=== PATIENT | male | born 1940 | race Caucasian/White ===

== ENCOUNTER 2016-12-01 22:17 | Inpatient (IN) | payer OTHER ==
--- NOTE | 2016-12-01 22:55 | PDOC ---
History of Present Illness - General History Source: Patient, Care Provider, Old Records Exam Limitations: No Limitations - History of Present Illness Initial Comments: 12/02/16 00:54 The patient is a 76 year old male with reportedly past medical history of arthritis, presents with rash on right anterior wolf (erythema). He started noticing it about a week and a half ago and has progressively worsened. 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 Noted an ulceration. Denies fevers, chills. And then yesterday, the climatology professor noted diffuse itchy rash on the upper extremities and abdomen and within the interweb digits. <Gabino Redmond - Last Filed: 12/02/16 00:54> - General History Source: Patient, Care Provider, Old Records Exam Limitations: No Limitations <Flavio Walker - Last Filed: 12/02/16 12:19> - General Chief Complaint: Wound Infection Stated Complaint: CELLUITIS Time Seen by Provider: 12/01/16 22:36 Past History <Gabino Redmond - Last Filed: 12/02/16 00:54> - Past Medical History Anemia: No Asthma: No Cancer: No Cardiac Disorders: No CVA: No COPD: No CHF: No Dementia: No Diabetes: No GI Disorders: No Disorders: No HTN: Yes Hypercholesterolemia: No Liver Disease: No Seizures: No Thyroid Disease: No - Surgical History Abdominal Surgery: No Appendectomy: No Cardiac Surgery: No Cholecystectomy: No Lung Surgery: No Neurologic Surgery: No Orthopedic Surgery: No - Immunization History Immunization Up to Date: No - Psycho/Social/Smoking Cessation Hx Anxiety: No Suicidal Ideation: No Smoking Status: No Smoking History: Never smoked Have you smoked in the past 12 months: No Number of Cigarettes Smoked Daily: 0 If you are a former smoker, when did you quit?: 30 yrs ago Hx Alcohol Use: No Drug/Substance Use Hx: No Substance Use Type: None Hx Substance Use Treatment: No <Flavio Walker - Last Filed: 12/02/16 12:19> - Past Medical History Allergies/Adverse Reactions: Allergies Allergy/AdvReac Type Severity Reaction Status Date / Time No Known Allergies Allergy Verified 12/01/16 22:26 Home Medications: Ambulatory Orders NK [No Known Home Medication] 12/02/16 Review of Systems - Review of Systems Able to Perform ROS?: Yes Comments:: 12/02/16 00:55 GENERAL/CONSTITUTIONAL: No fever or chills. No weakness. HEAD, EYES, EARS, NOSE AND THROAT: No change in vision. No ear pain or discharge. No sore throat. CARDIOVASCULAR: No chest pain or shortness of breath. RESPIRATORY: No cough, wheezing, or hemoptysis. GASTROINTESTINAL: No nausea, vomiting, diarrhea or constipation. GENITOURINARY: No dysuria, frequency, or change in urination. MUSCULOSKELETAL: No joint or muscle swelling or pain. No neck or back pain. SKIN: (+) Rash bilaterally on upper and lower extremities. NEUROLOGIC: No headache, vertigo, loss of consciousness, or change in strength/ sensation. ENDOCRINE: No increased thirst. No abnormal weight change. HEMATOLOGIC/LYMPHATIC: No anemia, easy bleeding, or history of blood clots. ALLERGIC/IMMUNOLOGIC: No hives or skin allergy. <Gabino Redmond - Last Filed: 12/02/16 00:54> *Physical Exam - Vital Signs Last Vital Signs Temp Pulse Resp BP Pulse Ox 97.4 F L 97 H 18 152/81 95 12/01/16 22:26 12/01/16 22:26 12/01/16 22:26 12/01/16 22:26 12/01/16 22:26 - Physical Exam Comments: 12/02/16 00:55 GENERAL: Awake, alert, and fully oriented, in no acute distress HEAD: No signs of trauma EYES: PERRLA, EOMI, sclera anicteric, conjunctiva clear ENT: Auricles normal inspection, hearing grossly normal, nares patent, oropharynx clear without exudates. Moist mucosa NECK: Normal ROM, supple, no lymphadenopathy, JVD, or masses LUNGS: Breath sounds equal, clear to auscultation bilaterally. No wheezes, and no crackles HEART: Regular rate and rhythm, normal S1 and S2, no murmurs, rubs or gallops ABDOMEN: Soft, nontender, normoactive bowel sounds. No guarding, no rebound. No masses EXTREMITIES: Normal range of motion, no edema. No clubbing or cyanosis. No cords, erythema, or tenderness NEUROLOGICAL: Cranial nerves II through XII grossly intact. Normal speech SKIN: (+) 15 x 8 cm wolf erythema with approximately 2x 2 cm skin ulceration in mid tibia tenderness to palpation. Upper extremities: Multiple scratch boateng, multiple raised erythematous lesions, scabies(?). <Gabino Redmond - Last Filed: 12/02/16 00:54> - Vital Signs Last Vital Signs Temp Pulse Resp BP Pulse Ox 97.4 F L 97 H 18 152/81 95 12/01/16 22:26 12/01/16 22:26 12/01/16 22:26 12/01/16 22:26 12/01/16 22:26 - Physical Exam Comments: 12/02/16 12:19 ADDENDUM TO SCRIBE NOTE: It is the right lower extremity with the erythema and ulceration <Flavio Walker - Last Filed: 12/02/16 12:19> Heart Score/ECG Review #1 ECG reviewed & interpreted by me at: 23:20 12/02/16 00:53 NSR 81 incomplete RBBB, no std/hallie, LAFB, LVH, QTC 434 msec <Flavio Walker - Last Filed: 12/02/16 12:19> ED Treatment Course - LABORATORY CBC & Chemistry Diagram: 12/01/16 22:59 12/01/16 22:59 - ADDITIONAL ORDERS Additional order review: Laboratory Results 12/01/16 12/01/16 12/01/16 22:59 22:59 22:59 INR PTT (Actin FS) Sodium Potassium Chloride Carbon Dioxide Anion Gap BUN Creatinine Creat Clearance w eGFR Random Glucose Lactic Acid 1.349 Calcium Total Bilirubin AST ALT Alkaline Phosphatase Creatine Kinase Creatine Kinase Index CK-MB (CK-2) CK-MB (CK-2) Rel Index Cancelled Troponin I Total Protein Albumin Urine Color Urine Appearance Urine pH Ur Specific [place] Urine Protein Urine Glucose (UA) Urine Ketones Urine Blood Urine Nitrite Urine Bilirubin Urine Urobilinogen Ur Leukocyte Esterase Blood Type AB POSITIVE Antibody Screen Negative 12/01/16 12/01/16 12/01/16 22:59 22:59 22:59 INR 1.06 PTT (Actin FS) 35.4 H Sodium 140 Potassium 4.1 Chloride 101 Carbon Dioxide 30 Anion Gap 9 BUN 15 Creatinine 0.7 D Creat Clearance w eGFR > 60 Random Glucose 87 Lactic Acid Calcium 8.8 Total Bilirubin 0.4 D AST 25 D ALT 27 Alkaline Phosphatase 128 H D Creatine Kinase 158 Creatine Kinase Index 2.7 CK-MB (CK-2) 4.382 H CK-MB (CK-2) Rel Index Troponin I < 0.02 Total Protein 7.6 D Albumin 3.3 L Urine Color Yellow Urine Appearance Clear Urine pH 7.0 Ur Specific [place] 1.010 Urine Protein Negative Urine Glucose (UA) Negative Urine Ketones Negative Urine Blood Negative Urine Nitrite Negative Urine Bilirubin Negative Urine Urobilinogen Negative Ur Leukocyte Esterase Negative Blood Type Antibody Screen 12/01/16 22:59 RBC 4.22 MCV 93.9 MCHC 33.5 RDW 12.8 MPV 7.5 Neutrophils % 74.1 Lymphocytes % 14.6 D Monocytes % 7.2 Eosinophils % 3.5 D Basophils % 0.6 - RADIOLOGY Radiograph Interpretation: 12/02/16 00:55 EXAM: CHEST X-RAY Rule out sepsis Portable chest x-ray AP sitting. Since 11/16/2011, the cardiac silhouette remains within normal limits in size with mild unfolding of the aortic arch and mild bilateral increased interstitial lung markings. Mediastinum and visualized osseous structures appear intact with significant levoscoliosis of the included upper lumbar spine. Impression: No significant interval change or acute lung disease is present. Reported By: Sergio Tavera MD - Medications Given in the ED: ED Medications Discontinued Medications Generic Name Dose Route Start Last Admin Trade Name Freq PRN Reason Stop Dose Admin Vancomycin HCl 1,000 mg/ 250 mls @ 250 mls/hr 12/01/16 22:56 12/02/16 00:47 Dextrose IVPB 12/01/16 23:55 250 mls/hr ONCE ONE Administration Protocol Piperacillin Sod/Tazobactam Sod 3.375 gm 12/01/16 22:56 12/02/16 00:04 Zosyn 3.375gm Ivpb (Pre-Docked) IVPB 12/01/16 22:57 3.375 gm ONCE ONE Administration Protocol <Gabino Redmond - Last Filed: 12/02/16 00:54> - LABORATORY CBC & Chemistry Diagram: 12/02/16 06:26 12/02/16 06:26 <Flavio Walker - Last Filed: 12/02/16 12:19> Medical Decision Making - Medical Decision Making 12/02/16 00:46 A portion of this note was documented by scribe services under my direction. I have reviewed the details of the note, within reason, and agree with the documentation with the following case summary and management plan written by me. Patient treated in the ED. Nursing notes are reviewed and incorporated into the medical decision-making. Vital signs reviewed. Peripheral IV access obtained by the nurse, laboratory studies are drawn and sent, reviewed and interpreted by myself. Vital Signs Temp Pulse Resp BP Pulse Ox 97.4 F L 97 H 18 152/81 95 12/01/16 22:26 12/01/16 22:26 12/01/16 22:26 12/01/16 22:26 12/01/16 22:26 76 year old male with reportedly no past medical history (other than arthritis) presents with rash on right anterior wolf (erythema). He started noticing it about a week and a half ago and has progressively worsened. 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 Noted an ulceration. Denies fevers, chills. And then yesterday, the climatology professor noted diffuse itchy rash on the upper extremities and abdomen and within the interweb digits. The RLE appears to be cellulitis. Will initiate adult sepsis protocol and start vanc and zosyn. Pt should be admitted to the hospital for treatment .The upper extremities could potentially be ?scabies?. Will need contact precautions and further evaluation for these upper extremities rash. Pt has not seen his PMD in years and does not have the most reliable followup. 12/02/16 01:43 CBC, BMP 12/01/16 22:59 12/01/16 22:59 CMP Sodium 140 mmol/L (136-145) 12/01/16 22:59 Potassium 4.1 mmol/L (3.5-5.1) 12/01/16 22:59 Chloride 101 mmol/L (98-107) 12/01/16 22:59 Carbon Dioxide 30 mmol/L (21-32) 12/01/16 22:59 Anion Gap 9 (8-16) 12/01/16 22:59 BUN 15 mg/dL (7-18) 12/01/16 22:59 Creatinine 0.7 mg/dL (0.7-1.3) D 12/01/16 22:59 Creat Clearance w eGFR > 60 (>60) 12/01/16 22:59 Random Glucose 87 mg/dL (74-106) 12/01/16 22:59 Lactic Acid 1.349 mmol/L (0.4-2.0) 12/01/16 22:59 Calcium 8.8 mg/dL (8.5-10.1) 12/01/16 22:59 Total Bilirubin 0.4 mg/dL (0.2-1.0) D 12/01/16 22:59 AST 25 U/L (15-37) D 12/01/16 22:59 ALT 27 U/L (12-78) 12/01/16 22:59 Alkaline Phosphatase 128 U/L (45-117) H D 12/01/16 22:59 Creatine Kinase 158 IU/L (39-308) 12/01/16 22:59 Creatine Kinase Index 2.7 % (0.0-5.0) 12/01/16 22:59 CK-MB (CK-2) 4.382 ng/ml (0.5-3.6) H 12/01/16 22:59 CK-MB (CK-2) Rel Index Cancelled 12/01/16 22:59 Troponin I < 0.02 ng/ml (0.00-0.05) 12/01/16 22:59 Total Protein 7.6 g/dl (6.4-8.2) D 12/01/16 22:59 Albumin 3.3 g/dl (3.4-5.0) L 12/01/16 22:59 Vanc and zosyn given. Case discussed with Dr. Braden. Will admit for med/surg observation. Case discussed in detail with admitting physician including history, physical exam and ancillary studies. Admitting physician has assumed care for the patient, will follow all pending diagnostics and will complete the evaluation and treatment. <Flavio Walker - Last Filed: 12/02/16 12:19> *DC/Admit/Observation/Transfer - Attestations Scribe Attestion: 12/02/16 00:56 Documentation prepared by Gabino Redmond, acting as medical transcriber for Flavio Walker MD.. <Gabino Redmond - Last Filed: 12/02/16 00:54> - Discharge Dispostion Admit: Yes <Flavio Walker - Last Filed: 12/02/16 12:19> Diagnosis at time of Disposition: Cellulitis Qualifiers: Site of cellulitis: extremity Site of cellulitis of extremity: lower extremity Laterality: right Qualified Code(s): L03.115 - Cellulitis of right lower limb
[2016-12-01] MEDS ORDERED: VANCOMYCIN 1,000 MG in DEXTROSE 5%-WATER - 250 ML IVPB ONE (22:56)
[2016-12-01] MEDS ORDERED: PIPERACILLIN/TAZOB 3.375 GM/50 ML PRE-DOCKED IVPB ONE (22:56)
[2016-12-01 23:37] LABS: BASOPHIL 0.6 % (0-2.0); EOSINOPHIL 3.5 % (0-4.5); MCH 31.5 pg (25.7-33.7); MCHC 33.5 g/dl (32.0-35.9); MEAN CELL VOLUME 93.9 fl (80-96); MEAN PLT VOLUME 7.5 fl (7.5-11.1); NEUTROPHILS 74.1 % (42.8-82.8); PLATELET COUNT 257 K/MM3 (134-434); RDW 12.8 % (11.9-15.9); WHITE BLOOD COUNT 9.7 K/mm3 (4.0-10.0)
[2016-12-01 23:43] LABS: URINE APPEARANCE CLEAR; URINE BILIRUBIN NEGATIVE (NEGATIVE); URINE BLOOD NEGATIVE (NEGATIVE); URINE COLOR YELLOW; URINE GLUCOSE (UA) NEGATIVE (NEGATIVE); URINE KETONE NEGATIVE (NEGATIVE); URINE LEUK ESTERASE NEGATIVE (NEGATIVE); URINE NITRITE NEGATIVE (NEGATIVE); URINE PROTEIN NEGATIVE (NEGATIVE); URINE UROBILINOGEN NEGATIVE E.U./dl (0.2-1.0)
[2016-12-01 23:50] LABS: INR 1.06 (0.82-1.09); PROTHROMBIN TIME (PATIENT) 11.7 SEC (9.98-11.88)
[2016-12-01 23:52] LABS: ACTIVATED PTT 35.4 SECONDS (26.9-34.4)
[2016-12-01] MEDS ORDERED: PIPERACILLIN/TAZOB 3.375 GM 50 ML IVPB ONE (23:55)
[2016-12-02 00:01] LABS: ALBUMIN 3.3 g/dl (3.4-5.0); ANION GAP 9 (8-16); BILIRUBIN,TOTAL 0.4 mg/dL (0.2-1.0); CALCIUM 8.8 mg/dL (8.5-10.1); CO2 30 mmol/L (21-32); CREATININE 0.7 mg/dL (0.7-1.3); GLUCOSE,RANDOM 87 mg/dL (74-106); SGOT/AST 25 U/L (15-37); SGPT/ALT 27 U/L (12-78); TOT PROT 7.6 g/dl (6.4-8.2)
[2016-12-02 00:03] LABS: ALK PHOS 128 U/L (45-117); TROPONIN I < 0.02 ng/ml (0.00-0.05)
[2016-12-02] MEDS ORDERED: VANCOMYCIN 1 GRAM (PRE-DOCKED) 250 ML IVPB ONE ×2 (00:41→08:51)
--- NOTE | 2016-12-02 02:04 | HP ---
CHIEF COMPLAINT: RLE redness, swelling, Pruritic Rash PCP: Dr. Haq HISTORY OF PRESENT ILLNESS: This is a 76 y/o male with a past medical history of Arthritis. Who presents to the emergency department with right lower extremity redness, swelling, pruritic rash to webs of hands, upper chest, torso, and back x 10 days. Patient reports it hit his leg against the stairs, later developing a wound which he attempted to treat at home. Patient reports the leg had fluid filled blisters which leaked pus. Patient reports having leg infections in the past requiring admission. Patient denies fever, chills, dizziness, SOB, CP, AP, N/V/D, dysuria ER course was notable for: (1) No leukocytosis, afebrile (2) Chest Xray- neg acute lung disease (3) Empirically treated with Vancomycin/Zosyn for RLE Cellulitis Recent Travel: None PAST MEDICAL HISTORY: Arthritis Cellulitis PAST SURGICAL HISTORY: Denies Social History: Smoking: Former Alcohol: None Drugs: None Family History: Non-Contributory Allergies No Known Allergies Allergy (Verified 12/01/16 22:26) HOME MEDICATIONS: Home Medications Medication Instructions Recorded NK [No Known Home Medication] 12/02/16 REVIEW OF SYSTEMS CONSTITUTIONAL: Absent: fever, chills, diaphoresis, generalized weakness, malaise, loss of appetite, weight change HEENT: Absent: rhinorrhea, nasal congestion, throat pain, throat swelling, difficulty swallowing, mouth swelling, ear pain, eye pain, visual changes CARDIOVASCULAR: peripheral edema Absent: chest pain, syncope, palpitations, irregular heart rate, lightheadedness RESPIRATORY: Absent: cough, shortness of breath, dyspnea with exertion, orthopnea, wheezing, stridor, hemoptysis GASTROINTESTINAL: Absent: abdominal pain, abdominal distension, nausea, vomiting, diarrhea, constipation, melena, hematochezia GENITOURINARY: Absent: dysuria, frequency, urgency, hesitancy, hematuria, flank pain, genital pain MUSCULOSKELETAL: Absent: myalgia, arthralgia, joint swelling, back pain, neck pain SKIN: rash, itching, redness Absent: pallor HEMATOLOGIC/IMMUNOLOGIC: Absent: easy bleeding, easy bruising, lymphadenopathy, frequent infections ENDOCRINE: Absent: unexplained weight gain, unexplained weight loss, heat intolerance, cold intolerance NEUROLOGIC: Absent: headache, focal weakness or paresthesias, dizziness, unsteady gait, seizure, mental status changes, bladder or bowel incontinence PSYCHIATRIC: Absent: anxiety, depression, suicidal or homicidal ideation, hallucinations. PHYSICAL EXAMINATION Vital Signs - 24 hr 12/01/16 22:26 Temperature 97.4 F L Pulse Rate 97 H Respiratory 18 Rate Blood Pressure 152/81 O2 Sat by Pulse 95 Oximetry (%) GENERAL: Cachetic, Awake, alert, and fully oriented, in no acute distress. HEAD: Normal with no signs of trauma. EYES: Pupils equal, round and reactive to light, extraocular movements intact, sclera anicteric, conjunctiva clear. No lid lag. EARS, NOSE, THROAT: Ears normal, nares patent, oropharynx clear without exudates. Dry mucous membranes. NECK: Normal range of motion, supple without lymphadenopathy, JVD, or masses. LUNGS: Breath sounds equal, clear to auscultation bilaterally. No wheezes, and no crackles. No accessory muscle use. HEART: Regular rate and rhythm, normal S1 and S2 without murmur, rub or gallop. ABDOMEN: Soft, nontender, not distended, normoactive bowel sounds, no guarding, no rebound, no masses. No hepatomegaly or splenomegaly. MUSCULOSKELETAL: Normal range of motion at all joints. No bony deformities or tenderness. No CVA tenderness. UPPER EXTREMITIES: 2+ pulses, warm, well-perfused. No cyanosis. No clubbing. Cap refill <2 seconds. No peripheral edema. LOWER EXTREMITIES: 2+ pulses, warm, well-perfused. No calf tenderness. +2 non pitting peripheral edema to right leg. NEUROLOGICAL: Cranial nerves II-XII intact. Normal speech. Gait not observed. PSYCHIATRIC: Cooperative. Good eye contact. Appropriate mood and affect. SKIN: Warm, dry, poor turgor, erythematous, pruritic lesions to upper extremities, back, abdomen. 2x2 cm ulcer to mid tibia. multiple scratch boateng to abdomen, erythema to right lower leg. honey color crusting noted to web spaces of hands and feet noted. Laboratory Results - last 24 hr 12/01/16 12/01/16 12/01/16 22:59 22:59 22:59 WBC 9.7 D RBC 4.22 Hgb 13.3 D Hct 39.7 MCV 93.9 MCHC 33.5 RDW 12.8 Plt Count 257 D MPV 7.5 Neutrophils % 74.1 Lymphocytes % 14.6 D Monocytes % 7.2 Eosinophils % 3.5 D Basophils % 0.6 INR 1.06 PTT (Actin FS) 35.4 H Sodium Potassium Chloride Carbon Dioxide Anion Gap BUN Creatinine Creat Clearance w eGFR Random Glucose Lactic Acid Calcium Total Bilirubin AST ALT Alkaline Phosphatase Creatine Kinase Creatine Kinase Index CK-MB (CK-2) CK-MB (CK-2) Rel Index Troponin I Total Protein Albumin Urine Color Yellow Urine Appearance Clear Urine pH 7.0 Ur Specific [place] 1.010 Urine Protein Negative Urine Glucose (UA) Negative Urine Ketones Negative Urine Blood Negative Urine Nitrite Negative Urine Bilirubin Negative Urine Urobilinogen Negative Ur Leukocyte Esterase Negative Blood Type Antibody Screen 12/01/16 12/01/16 12/01/16 22:59 22:59 22:59 WBC RBC Hgb Hct MCV MCHC RDW Plt Count MPV Neutrophils % Lymphocytes % Monocytes % Eosinophils % Basophils % INR PTT (Actin FS) Sodium 140 Potassium 4.1 Chloride 101 Carbon Dioxide 30 Anion Gap 9 BUN 15 Creatinine 0.7 D Creat Clearance w eGFR > 60 Random Glucose 87 Lactic Acid 1.349 Calcium 8.8 Total Bilirubin 0.4 D AST 25 D ALT 27 Alkaline Phosphatase 128 H D Creatine Kinase 158 Creatine Kinase Index 2.7 CK-MB (CK-2) 4.382 H CK-MB (CK-2) Rel Index Troponin I < 0.02 Total Protein 7.6 D Albumin 3.3 L Urine Color Urine Appearance Urine pH Ur Specific [place] Urine Protein Urine Glucose (UA) Urine Ketones Urine Blood Urine Nitrite Urine Bilirubin Urine Urobilinogen Ur Leukocyte Esterase Blood Type AB POSITIVE Antibody Screen Negative 12/01/16 22:59 WBC RBC Hgb Hct MCV MCHC RDW Plt Count MPV Neutrophils % Lymphocytes % Monocytes % Eosinophils % Basophils % INR PTT (Actin FS) Sodium Potassium Chloride Carbon Dioxide Anion Gap BUN Creatinine Creat Clearance w eGFR Random Glucose Lactic Acid Calcium Total Bilirubin AST ALT Alkaline Phosphatase Creatine Kinase Creatine Kinase Index CK-MB (CK-2) CK-MB (CK-2) Rel Index Cancelled Troponin I Total Protein Albumin Urine Color Urine Appearance Urine pH Ur Specific [place] Urine Protein Urine Glucose (UA) Urine Ketones Urine Blood Urine Nitrite Urine Bilirubin Urine Urobilinogen Ur Leukocyte Esterase Blood Type Antibody Screen - RADIOLOGY Radiograph Interpretation: 12/02/16 00:55 EXAM: CHEST X-RAY Rule out sepsis Portable chest x-ray AP sitting. Since 11/16/2011, the cardiac silhouette remains within normal limits in size with mild unfolding of the aortic arch and mild bilateral increased interstitial lung markings. Mediastinum and visualized osseous structures appear intact with significant levoscoliosis of the included upper lumbar spine. Impression: No significant interval change or acute lung disease is present. Reported By: Sergio Tavera MD ASSESSMENT/PLAN: This is a 76 y/o male with a PMHx of Arthritis. Presents to the ED with RLE redness, swelling, pruritic lesions to upper arms, back, abdomen, web space of hands. Placed in Observation for evaluation of their emergent condition. Plan: 1. Cellulitis RLE 2. ? Scabies- Arms,Back,Abdomen, Web Spaces 3. Arthritis 4. FEN 5. DVT Prophylaxis FEN PO Fluids Replete lytes prn Regular Diet Code Status: Full Code Problem List - Problem (1) Cellulitis Assessment/Plan: - Blood Cultures-pending - No active drainage- no culture needed atbthis time - Vancomycin, Zosyn given in ED - Appreciate ID Consult - Continue ABX until BC report, discuss with ID - Monitor CBC, vitals - Pain Mgmt- Motrin - Elevate RLE - Will obtain dupplex of lower extremity r/o DVT - Wells Score 2 Code(s): L03.90 - CELLULITIS, UNSPECIFIED Qualifiers: Site of cellulitis: extremity Site of cellulitis of extremity: lower extremity Laterality: right Qualified Code(s): L03.115 - Cellulitis of right lower limb (2) Scabies Assessment/Plan: - r/o Scabies - On exam: honey colored crusting to webbed space, linear scratches to abdomen/ arms, with multiple pruritic erythematous papules - Will treat with Permethrin topically - Appreciate ID Consult - Contact Precautions Code(s): B86 - SCABIES (3) Arthritis Assessment/Plan: - Continue to monitor and treat with interventions accordingly - Tylenol prn - Consider PT outpatient Code(s): M19.90 - UNSPECIFIED OSTEOARTHRITIS, UNSPECIFIED SITE (4) DVT prophylaxis Assessment/Plan: - OOB - Lovenox SQ Code(s): [id number] - Visit type - Emergency Visit Emergency Visit: Yes Care time: The patient presented to the Emergency Department on the above date and was hospitalized for further evaluation of their emergent condition. - New Patient This patient is new to me today: Yes Date on this admission: 12/02/16 - Critical Care Critical Care patient: No
[2016-12-02] MEDS ORDERED: PERMETHRIN 5% TOPICAL CREAM 60 GM TUBE TP ONE (03:07)
[2016-12-02 06:44] LABS: BASOPHIL 0.8 % (0-2.0); EOSINOPHIL 8.1 % (0-4.5); MCH 31.9 pg (25.7-33.7); MCHC 33.7 g/dl (32.0-35.9); MEAN CELL VOLUME 94.6 fl (80-96); MEAN PLT VOLUME 7.4 fl (7.5-11.1); PLATELET COUNT 252 K/MM3 (134-434); RDW 12.4 % (11.9-15.9); WHITE BLOOD COUNT 7.6 K/mm3 (4.0-10.0)
[2016-12-02 07:06] LABS: CALCIUM 8.8 mg/dL (8.5-10.1); CREATININE 0.6 mg/dL (0.7-1.3)
[2016-12-02] MEDS ORDERED: PIPERACILLIN/TAZOB 3.375 GM 50 ML IVPB ONE (08:51)
[2016-12-02] MEDS ORDERED: diphenhydrAMINE HCL 25 MG CAPSULE (FP) PO ONE (08:52)
[2016-12-02] MEDS: ENOXAPARIN NA (PORCINE) 40 MG/0.4 ML DISP.SYRIN SQ SCH (09:17)
--- NOTE | 2016-12-02 09:55 | EKG ---
Test Reason : Blood Pressure : / mmHG Vent. Rate : 081 BPM Atrial Rate : 081 BPM P-R Int : 162 ms QRS Dur : 108 ms QT Int : 374 ms P-R-T Axes : 055 -47 052 degrees QTc Int : 434 ms NORMAL SINUS RHYTHM INCOMPLETE RIGHT BUNDLE BRANCH BLOCK LEFT ANTERIOR FASCICULAR BLOCK MINIMAL VOLTAGE CRITERIA FOR LVH, MAY BE NORMAL VARIANT ABNORMAL ECG WHEN COMPARED WITH ECG OF 16-NOV-2011 22:27, NO SIGNIFICANT CHANGE WAS FOUND Confirmed by PATI ROSADO MD ([id number]) on 12/02/2016 9:55:12 AM Referred By: Confirmed By:PATI ROSADO MD
[2016-12-02] MEDS ORDERED: VANCOMYCIN 1,000 MG in DEXTROSE 5%-WATER - 250 ML IVPB SCH (10:00)
[2016-12-02] MEDS ORDERED: PIPERACILLIN/TAZOB 3.375 GM/50 ML PRE-DOCKED IVPB SCH (10:00)
[2016-12-02] MEDS ORDERED: PIPERACILLIN/TAZOB 3.375 GM/50 ML PRE-DOCKED IVPB ONE (10:00)
[2016-12-02] MEDS: diphenhydrAMINE HCL 25 MG CAPSULE (FP) PO PRN (10:00)
[2016-12-02] MEDS ORDERED: VANCOMYCIN 1 GRAM (PRE-DOCKED) 1,000 MG/250 ML BAG IVPB ONE (13:00)
--- NOTE | 2016-12-02 14:38 | CONSULT ---
Consult Consult Specialty:: infectious diseases Reason for Consultation:: rash,infection - History of Present Illness Chief Complaint: rash,itching History of Present Illness: 76 y/o male with a past medical history of Arthritis. Who presents to the emergency department with right lower extremity redness, swelling, pruritic rash to webs of hands, upper chest, torso, and back x 13 days. Patient reports it hit his leg against the stairs, later developing a wound which he attempted to treat at home. Patient reports the leg had fluid filled blisters which leaked pus. Patient reports having leg infections in the past requiring admission. Patient denies fever, chills, dizziness, SOB, CP, AP, N/V/D, dysuria according to the patient he has the wound on the rt leg since a long time and has been treating it himself wound has not healed well and patient has long standing venous stasis changes on the legs - History Source History Provided By: Family Member, Medical Record Limitations to Obtaining History: Poor Historian - Alcohol/Substance Use Hx Alcohol Use: No - Smoking History Smoking history: Never smoked Have you smoked in the past 12 months: No Aproximately how many cigarettes per day: 0 If you are a former smoker, when did you quit?: 30 yrs ago Home Medications - Allergies Allergies/Adverse Reactions: Allergies Allergy/AdvReac Type Severity Reaction Status Date / Time No Known Allergies Allergy Verified 12/01/16 22:26 - Home Medications Home Medications: Ambulatory Orders NK [No Known Home Medication] 12/02/16 Review of Systems - Review of Systems Constitutional: reports: No Symptoms Eyes: reports: No Symptoms HENT: reports: No Symptoms Neck: reports: No Symptoms Cardiovascular: reports: No Symptoms Respiratory: reports: No Symptoms Gastrointestinal: reports: No Symptoms Integumentary: reports: Erythema, Lesions, Rash Neurological: reports: No Symptoms Endocrine: reports: No Symptoms Hematology/Lymphatic: reports: No Symptoms Psychiatric: reports: No Symptoms Physical Exam Vital Signs: Vital Signs Temperature 98.0 F 12/02/16 12:23 Pulse Rate 60 12/02/16 12:23 Respiratory Rate 18 12/02/16 12:23 Blood Pressure 133/84 12/02/16 12:23 O2 Sat by Pulse Oximetry (%) 98 12/02/16 12:23 Constitutional: Yes: Calm, Mild Distress, Other Eyes: Yes: Conjunctiva Clear Neck: Yes: Supple, Trachea Midline Cardiovascular: Yes: Regular Rate and Rhythm Respiratory: Yes: Regular, CTA Bilaterally Gastrointestinal: Yes: Normal Bowel Sounds, Soft Musculoskeletal: Yes: Other Extremities: Yes: Other Integumentary: Yes: Erythema, Rash, Venous Stasis Changes, Other ( pruritic lesions to upper extremities, back, abdomen. 2x2 cm ulcer to mid tibia. multiple scratch boateng to abdomen, legs) Wound/Incision: Yes: Reddened, Other Neurological: Yes: Alert, Oriented Psychiatric: Yes: Alert, Oriented Labs: CBC, BMP 12/02/16 06:26 12/02/16 06:26 Assessment/Plan Problem List - Problem (1) Cellulitis Code(s): L03.90 - CELLULITIS, UNSPECIFIED Qualifiers: Site of cellulitis: extremity Site of cellulitis of extremity: lower extremity Laterality: right Qualified Code(s): L03.115 - Cellulitis of right lower limb (2) Scabies Code(s): B86 - SCABIES (3) Arthritist Code(s): M19.90 - UNSPECIFIED OSTEOARTHRITIS, UNSPECIFIED SITE plan continue current mgmt will also give a dose of ivermectin also his rash looks infected because of scratching i suspect he might also ahve mrsa in the wound await for blood cx results
[2016-12-02] MEDS: PIPERACILLIN/TAZOB 3.375 GM 50 ML IVPB SCH (20:15)
[2016-12-03] MEDS: diphenhydrAMINE HCL 25 MG CAPSULE (FP) PO PRN (01:51)
[2016-12-03 02:09] VITALS: BMI 18.3
[2016-12-03] MEDS: PIPERACILLIN/TAZOB 3.375 GM 50 ML IVPB SCH ×2 (02:51→10:44)
[2016-12-03 08:37] LABS: BASOPHIL 0.8 % (0-2.0); EOSINOPHIL 10.4 % (0-4.5); MCH 31.6 pg (25.7-33.7); MCHC 33.1 g/dl (32.0-35.9); MEAN CELL VOLUME 95.4 fl (80-96); MEAN PLT VOLUME 7.8 fl (7.5-11.1); NEUTROPHILS 60.5 % (42.8-82.8); PLATELET COUNT 215 K/MM3 (134-434); RDW 12.7 % (11.9-15.9); WHITE BLOOD COUNT 7.7 K/mm3 (4.0-10.0)
[2016-12-03 09:28] LABS: ALBUMIN 2.7 g/dl (3.4-5.0); ALK PHOS 95 U/L (45-117); ANION GAP 8 (8-16); BILIRUBIN,TOTAL 0.3 mg/dL (0.2-1.0); C-REACTIVE PROTEIN 0.4 MG/DL (0.00-0.3); CO2 28 mmol/L (21-32); CREATININE 0.7 mg/dL (0.7-1.3); GLUCOSE,RANDOM 86 mg/dL (74-106); MAGNESIUM 2.2 mg/dL (1.8-2.4); SGOT/AST 20 U/L (15-37); SGPT/ALT 22 U/L (12-78); TOT PROT 6.1 g/dl (6.4-8.2)
[2016-12-03] MEDS ORDERED: PERMETHRIN 5% TOPICAL CREAM 60 GM TUBE TP SCH (10:00)
[2016-12-03] MEDS: ENOXAPARIN NA (PORCINE) 40 MG/0.4 ML DISP.SYRIN SQ SCH (10:43)
--- NOTE | 2016-12-03 11:26 | PN ---
Progress Note, Physician History of Present Illness: patient izzy says he feels a bit better still continues to scratch - Current Medication List Current Medications: Active Medications Diphenhydramine HCl (Benadryl -) 25 mg PO Q6H PRN PRN Reason: FOR ITCHING Last Admin: 12/03/16 01:51 Dose: 25 mg Enoxaparin Sodium (Lovenox -) 40 mg SQ DAILY [facility] Last Admin: 12/03/16 10:43 Dose: 40 mg Vancomycin HCl (Vancomycin (Pre-Docked)) 250 mls @ 250 mls/hr IVPB DAILY@1300 [facility] PRN Reason: Protocol Piperacillin Sod/Tazobactam Sod (Zosyn 3.375gm Ivpb (Pre-Docked)) 50 mls @ 100 mls/hr IVPB Q8H-IV [facility] PRN Reason: Protocol Last Admin: 12/03/16 10:44 Dose: 100 mls/hr Ivermectin (Stromectol (Nf-Restricted To Id) -) 12 mg PO ONCE ONE Stop: 12/03/16 12:01 Permethrin (Elimite -) 1 applic TP DAILY [facility] Stop: 12/08/16 10:01 Last Admin: 12/03/16 10:44 Dose: 1 applic - Objective Vital Signs: Vital Signs Temperature 98.3 F 12/03/16 06:02 Pulse Rate 66 12/03/16 06:02 Respiratory Rate 16 12/03/16 06:02 Blood Pressure 114/63 12/03/16 06:02 O2 Sat by Pulse Oximetry (%) 98 12/02/16 22:00 Constitutional: Yes: No Distress, Calm Eyes: Yes: Conjunctiva Clear Cardiovascular: Yes: Regular Rate and Rhythm Respiratory: Yes: Regular, CTA Bilaterally Gastrointestinal: Yes: Normal Bowel Sounds, Soft Musculoskeletal: Yes: Other Extremities: Yes: Other Integumentary: Yes: Erythema, Rash, Other (multiple scratch boateng on the body wound on the leg rash still present) Wound/Incision: Yes: Clean/Dry Neurological: Yes: Alert, Oriented Psychiatric: Yes: Alert Labs: CBC, BMP 12/03/16 06:15 12/03/16 06:15 INR, PTT INR 1.06 (0.82-1.09) 12/01/16 22:59 Assessment/Plan Problem List - Problem (1) Cellulitis Code(s): L03.90 - CELLULITIS, UNSPECIFIED Qualifiers: Site of cellulitis: extremity Site of cellulitis of extremity: lower extremity Laterality: right Qualified Code(s): L03.115 - Cellulitis of right lower limb (2) Scabies Code(s): B86 - SCABIES (3) Arthritist Code(s): M19.90 - UNSPECIFIED OSTEOARTHRITIS, UNSPECIFIED SITE bacteremia patient now growing mssa in blood plan continue current mgmt will continue current abx await for sensitivities to be back will stop zosyn once we have sensitivities will decide
[2016-12-03] MEDS ORDERED: IVERMECTIN 3 MG TABLET PO ONE (12:00)
[2016-12-03] MEDS: VANCOMYCIN 1 GRAM (PRE-DOCKED) 250 ML IVPB SCH (13:16)
--- NOTE | 2016-12-03 14:35 | PN ---
Physical Exam: SUBJECTIVE: Patient seen and examined OBJECTIVE: Vital Signs Period Temp Pulse Resp BP Sys/Phillips Pulse Ox Last 24 Hr 97.3 F-98.9 F 62-92 16-20 114-133/63-85 98-98 GENERAL: The patient is awake, alert, and fully oriented, in no acute distress. HEAD: Normal with no signs of trauma. EYES: PERRL, extraocular movements intact, sclera anicteric, conjunctiva clear. No ptosis. ENT: Ears normal, nares patent, oropharynx clear without exudates, moist mucous membranes. NECK: Trachea midline, full range of motion, supple. LUNGS: Breath sounds equal, clear to auscultation bilaterally, no wheezes, no crackles, no accessory muscle use. HEART: Regular rate and rhythm, S1, S2 without murmur, rub or gallop. ABDOMEN: Soft, nontender, nondistended, normoactive bowel sounds, no guarding, no rebound, no hepatosplenomegaly, no masses. EXTREMITIES: 2+ pulses, warm, well-perfused, no edema. NEUROLOGICAL: Cranial nerves II through XII grossly intact. Normal speech, gait not observed. PSYCH: Normal mood, normal affect. SKIN: Warm, dry, normal turgor, no rashes or lesions noted Laboratory Results - last 24 hr 12/03/16 12/03/16 06:15 06:15 WBC 7.7 RBC 3.73 L Hgb 11.8 Hct 35.6 MCV 95.4 MCHC 33.1 RDW 12.7 Plt Count 215 MPV 7.8 Neutrophils % 60.5 Lymphocytes % 21.9 Monocytes % 6.4 Eosinophils % 10.4 H Basophils % 0.8 Sodium 139 Potassium 4.5 Chloride 103 Carbon Dioxide 28 Anion Gap 8 BUN 18 D Creatinine 0.7 Creat Clearance w eGFR > 60 Random Glucose 86 Calcium 8.0 L Magnesium 2.2 Total Bilirubin 0.3 D AST 20 ALT 22 Alkaline Phosphatase 95 D C-Reactive Protein 0.4 H Total Protein 6.1 L Albumin 2.7 L Active Medications Generic Name Dose Route Start Last Admin Trade Name Freq PRN Reason Stop Dose Admin Diphenhydramine HCl 25 mg 12/02/16 03:23 12/03/16 01:51 Benadryl - PO 25 mg Q6H PRN Administration FOR ITCHING Enoxaparin Sodium 40 mg 12/02/16 10:00 12/03/16 10:43 Lovenox - SQ 40 mg DAILY [facility] Administration Vancomycin HCl 250 mls @ 250 mls/hr 12/03/16 13:00 12/03/16 13:16 Vancomycin (Pre-Docked) IVPB 250 mls/hr DAILY@1300 [facility] Administration Protocol Permethrin 1 applic 12/03/16 10:00 12/03/16 10:44 Elimite - TP 12/08/16 10:01 1 applic DAILY [facility] Administration ASSESSMENT/PLAN:
--- NOTE | 2016-12-03 14:35 | PN ---
Physical Exam: SUBJECTIVE: Patient seen and examined at bedside. Itching from rash is better. OBJECTIVE: Vital Signs Period Temp Pulse Resp BP Sys/Phillips Pulse Ox Last 24 Hr 97.3 F-98.9 F 62-92 16-20 114-133/63-85 98-98 GENERAL: The patient is awake, alert, and fully oriented, in no acute distress. HEAD: Normal with no signs of trauma. EYES: PERRL, extraocular movements intact, sclera anicteric, conjunctiva clear. No ptosis. LUNGS: Breath sounds equal, clear to auscultation bilaterally, no wheezes, no crackles, no accessory muscle use. HEART: Regular rate and rhythm, S1, S2 without murmur, rub or gallop. ABDOMEN: Soft, nontender, nondistended, normoactive bowel sounds, no guarding, no rebound; excoriated UPPER EXTREMITIES and INNER RIGHT THIGH: covered with red, dry, crusted lesions ; crusting in between fingers RLE: severe erythema and swelling, tender, warm to touch, 3cm L x 2cm W venous ulcer, slough in wound bed NEUROLOGICAL: Cranial nerves II through XII grossly intact. Normal speech, gait not observed. Laboratory Results - last 24 hr 12/03/16 12/03/16 06:15 06:15 WBC 7.7 RBC 3.73 L Hgb 11.8 Hct 35.6 MCV 95.4 MCHC 33.1 RDW 12.7 Plt Count 215 MPV 7.8 Neutrophils % 60.5 Lymphocytes % 21.9 Monocytes % 6.4 Eosinophils % 10.4 H Basophils % 0.8 Sodium 139 Potassium 4.5 Chloride 103 Carbon Dioxide 28 Anion Gap 8 BUN 18 D Creatinine 0.7 Creat Clearance w eGFR > 60 Random Glucose 86 Calcium 8.0 L Magnesium 2.2 Total Bilirubin 0.3 D AST 20 ALT 22 Alkaline Phosphatase 95 D C-Reactive Protein 0.4 H Total Protein 6.1 L Albumin 2.7 L Current Medications Generic Name Dose Route Start Last Admin Trade Name Freq PRN Reason Stop Dose Admin Diphenhydramine HCl 25 mg 12/02/16 03:23 12/03/16 01:51 Benadryl - PO 25 mg Q6H PRN Administration FOR ITCHING Enoxaparin Sodium 40 mg 12/02/16 10:00 12/03/16 10:43 Lovenox - SQ 40 mg DAILY [facility] Administration Vancomycin HCl 250 mls @ 250 mls/hr 12/03/16 13:00 12/03/16 13:16 Vancomycin (Pre-Docked) IVPB 250 mls/hr DAILY@1300 [facility] Administration Protocol Microbiology 12/01/16 22:59 Blood - Peripheral Venous Blood Culture - Preliminary Presumptive Mssa (Pbp2a Neg) 12/01/16 22:59 Blood - Peripheral Venous Blood Culture - Preliminary Presumptive Mssa (Pbp2a Neg) 12/01/16 23:42 Urine - Urine Clean Catch Urine Culture - Final NO GROWTH OBTAINED ASSESSMENT/PLAN: 76 year-old with a PMH of arthritis admitted for RLE cellulitis. Presumptive MSSA Bacteremia secondary to RLE Cellulitis --continue Vanc (day #3); d/c Zosyn --ID following --awaiting sensitivities r/o scabies --empirically treated with permethrin x 1 --derm consult F/E/N Fluids: PO intake adequate Electrolytes: replete as indicated Nutrition: regular diet DVT prophylaxis: lovenox, oob, ambulation Rehab PT evaluation Daily PT Dispo: continues to require inpatient care. Full Code. Visit type - Emergency Visit Emergency Visit: Yes ED Registration Date: 12/03/16 Care time: The patient presented to the Emergency Department on the above date and was hospitalized for further evaluation of their emergent condition. - New Patient This patient is new to me today: No - Critical Care Critical Care patient: No
[2016-12-04 07:48] LABS: BASOPHIL 0.9 % (0-2.0); EOSINOPHIL 10.8 % (0-4.5); MCH 31.7 pg (25.7-33.7); MCHC 33.1 g/dl (32.0-35.9); MEAN CELL VOLUME 95.6 fl (80-96); MEAN PLT VOLUME 7.8 fl (7.5-11.1); NEUTROPHILS 58.6 % (42.8-82.8); PLATELET COUNT 204 K/MM3 (134-434); RDW 12.9 % (11.9-15.9); WHITE BLOOD COUNT 7.8 K/mm3 (4.0-10.0)
[2016-12-04 08:39] LABS: ALBUMIN 2.7 g/dl (3.4-5.0); ALK PHOS 97 U/L (45-117); ANION GAP 7 (8-16); BILIRUBIN,TOTAL 0.2 mg/dL (0.2-1.0); CALCIUM 8.3 mg/dL (8.5-10.1); CO2 27 mmol/L (21-32); CREATININE 0.6 mg/dL (0.7-1.3); GLUCOSE,RANDOM 87 mg/dL (74-106); MAGNESIUM 2.3 mg/dL (1.8-2.4); SGOT/AST 17 U/L (15-37); SGPT/ALT 24 U/L (12-78); TOT PROT 6.2 g/dl (6.4-8.2)
[2016-12-04] MEDS: ENOXAPARIN NA (PORCINE) 40 MG/0.4 ML DISP.SYRIN SQ SCH (09:24)
--- NOTE | 2016-12-04 10:59 | PN ---
Physical Exam: SUBJECTIVE: Patient seen and examined at bedside. Rash is still itchy but less so. OBJECTIVE: Vital Signs Period Temp Pulse Resp BP Sys/Phillips Pulse Ox Last 24 Hr 97.5 F-98.6 F 69-76 18-18 108-120/57-73 98 GENERAL: The patient is awake, alert, and fully oriented, in no acute distress. HEAD: Normal with no signs of trauma. EYES: PERRL, extraocular movements intact, sclera anicteric, conjunctiva clear. No ptosis. LUNGS: Breath sounds equal, clear to auscultation bilaterally, no wheezes, no crackles, no accessory muscle use. HEART: Regular rate and rhythm, S1, S2 without murmur, rub or gallop. ABDOMEN: Soft, nontender, nondistended, normoactive bowel sounds, no guarding, no rebound; excoriated UPPER EXTREMITIES and INNER RIGHT THIGH: covered with red, dry, crusted lesions ; crusting in between fingers, improved RLE: severe erythema and swelling, tender, warm to touch, 3cm L x 2cm W venous ulcer, slough in wound bed NEUROLOGICAL: Cranial nerves II through XII grossly intact. Normal speech, gait not observed. Laboratory Results - last 24 hr 12/04/16 12/04/16 06:15 06:15 WBC 7.8 RBC 3.70 L Hgb 11.7 Hct 35.4 MCV 95.6 MCHC 33.1 RDW 12.9 Plt Count 204 MPV 7.8 Neutrophils % 58.6 Lymphocytes % 22.0 Monocytes % 7.7 Eosinophils % 10.8 H Basophils % 0.9 Sodium 141 Potassium 4.4 Chloride 107 Carbon Dioxide 27 Anion Gap 7 L BUN 17 Creatinine 0.6 L Creat Clearance w eGFR > 60 Random Glucose 87 Calcium 8.3 L Magnesium 2.3 Total Bilirubin 0.2 D AST 17 ALT 24 Alkaline Phosphatase 97 Total Protein 6.2 L Albumin 2.7 L Current Medications Generic Name Dose Route Start Last Admin Trade Name Freq PRN Reason Stop Dose Admin Diphenhydramine HCl 25 mg 12/02/16 03:23 12/03/16 01:51 Benadryl - PO 25 mg Q6H PRN Administration FOR ITCHING Enoxaparin Sodium 40 mg 12/02/16 10:00 12/04/16 09:24 Lovenox - SQ 40 mg DAILY [facility] Administration Fluocinonide 1 applic 12/04/16 22:00 Lidex 0.05% Cream - TP BID [facility] Cefazolin Sodium 50 mls @ 100 mls/hr 12/04/16 14:15 12/04/16 15:32 Ancef 1gm Ivpb (Pre-Docked) IVPB 100 mls/hr Q8H-IV [facility] Administration Microbiology 12/01/16 22:59 Blood - Peripheral Venous Blood Culture - Final Presumptive Mssa (Pbp2a Neg) 12/01/16 22:59 Blood - Peripheral Venous Blood Culture - Preliminary Presumptive Mssa (Pbp2a Neg) 12/01/16 23:42 Urine - Urine Clean Catch Urine Culture - Final NO GROWTH OBTAINED ASSESSMENT/PLAN: 76 year-old with a PMH of arthritis admitted for RLE cellulitis. Presumptive MSSA Bacteremia secondary to RLE Cellulitis --switch to cefazolin (day #1); Zosyn x 3 days complete Rash r/o scabies --Control Tower Operator Dr. Carlos ordered Lidex cream BID, she will see patient tomorrow --was treated empirically with permethrin x 1 F/E/N Fluids: PO intake adequate Electrolytes: replete as indicated Nutrition: regular diet DVT prophylaxis: lovenox, oob, ambulation Rehab PT evaluation Daily PT Dispo: continues to require inpatient care. Full Code. Visit type - Emergency Visit Emergency Visit: Yes ED Registration Date: 12/03/16 Care time: The patient presented to the Emergency Department on the above date and was hospitalized for further evaluation of their emergent condition. - New Patient This patient is new to me today: No - Critical Care Critical Care patient: No
[2016-12-04] MEDS: VANCOMYCIN 1 GRAM (PRE-DOCKED) 250 ML IVPB SCH (13:06)
--- NOTE | 2016-12-04 14:08 | PN ---
Progress Note, Physician History of Present Illness: patient stable says he feels a bit better still continues to scratch rash still present - Current Medication List Current Medications: Active Medications Diphenhydramine HCl (Benadryl -) 25 mg PO Q6H PRN PRN Reason: FOR ITCHING Last Admin: 12/03/16 01:51 Dose: 25 mg Enoxaparin Sodium (Lovenox -) 40 mg SQ DAILY [facility] Last Admin: 12/04/16 09:24 Dose: 40 mg Vancomycin HCl (Vancomycin (Pre-Docked)) 250 mls @ 250 mls/hr IVPB DAILY@1300 [facility] PRN Reason: Protocol Last Admin: 12/04/16 13:06 Dose: 250 mls/hr - Objective Vital Signs: Vital Signs Temperature 98.4 F 12/04/16 10:00 Pulse Rate 71 12/04/16 10:00 Respiratory Rate 18 12/04/16 13:20 Blood Pressure 131/65 12/04/16 10:00 O2 Sat by Pulse Oximetry (%) 98 12/04/16 13:20 Constitutional: Yes: No Distress, Calm Cardiovascular: Yes: Regular Rate and Rhythm Respiratory: Yes: Regular, CTA Bilaterally Musculoskeletal: Yes: Other Extremities: Yes: Other Integumentary: Yes: Erythema, Rash, Other Wound/Incision: Yes: Other Neurological: Yes: Alert, Oriented Psychiatric: Yes: Alert Labs: CBC, BMP 12/04/16 06:15 12/04/16 06:15 INR, PTT INR 1.06 (0.82-1.09) 12/01/16 22:59 Assessment/Plan Problem List - Problem (1) Cellulitis Code(s): L03.90 - CELLULITIS, UNSPECIFIED Qualifiers: Site of cellulitis: extremity Site of cellulitis of extremity: lower extremity Laterality: right Qualified Code(s): L03.115 - Cellulitis of right lower limb (2) Scabies Code(s): B86 - SCABIES (3) Arthritist Code(s): M19.90 - UNSPECIFIED OSTEOARTHRITIS, UNSPECIFIED SITE bacteremia patient now growing mssa in blood plan will switch abx to cefazolin stop vanco agree with derm consult i think we can use some benadryl
[2016-12-04] MEDS: CEFAZOLIN (PRE-DOCKED) 50 ML IVPB SCH ×2 (15:32→19:01)
[2016-12-04] MEDS: FLUOCINONIDE 0.05% CREAM (60 GM TUBE) TP SCH (21:37)
[2016-12-05] MEDS: CEFAZOLIN (PRE-DOCKED) 50 ML IVPB SCH ×3 (02:04→17:53)
[2016-12-05] MEDS: ENOXAPARIN NA (PORCINE) 40 MG/0.4 ML DISP.SYRIN SQ SCH (10:53)
[2016-12-05] MEDS: FLUOCINONIDE 0.05% CREAM (60 GM TUBE) TP SCH ×2 (10:54→22:19)
--- NOTE | 2016-12-05 12:58 | PN ---
Progress Note, Physician History of Present Illness: rash improving less itching - Current Medication List Current Medications: Active Medications Diphenhydramine HCl (Benadryl -) 25 mg PO Q6H PRN PRN Reason: FOR ITCHING Last Admin: 12/03/16 01:51 Dose: 25 mg Enoxaparin Sodium (Lovenox -) 40 mg SQ DAILY [facility] Last Admin: 12/05/16 10:53 Dose: 40 mg Fluocinonide (Lidex 0.05% Cream -) 1 applic TP BID [facility] Last Admin: 12/05/16 10:54 Dose: 1 applic Cefazolin Sodium (Ancef 1gm Ivpb (Pre-Docked)) 50 mls @ 100 mls/hr IVPB Q8H-IV [facility] Last Admin: 12/05/16 10:53 Dose: 100 mls/hr - Objective Vital Signs: Vital Signs Temperature 98.6 F 12/05/16 06:00 Pulse Rate 72 12/05/16 06:00 Respiratory Rate 18 12/05/16 06:00 Blood Pressure 132/62 12/05/16 06:00 O2 Sat by Pulse Oximetry (%) 98 12/04/16 21:00 Constitutional: Yes: No Distress, Calm Cardiovascular: Yes: Regular Rate and Rhythm Respiratory: Yes: Regular, CTA Bilaterally Gastrointestinal: Yes: Normal Bowel Sounds, Soft Musculoskeletal: Yes: Other Extremities: Yes: Other Integumentary: Yes: Erythema, Rash (improving) Neurological: Yes: Alert, Oriented Psychiatric: Yes: Alert Labs: CBC, BMP 12/04/16 06:15 12/04/16 06:15 INR, PTT INR 1.06 (0.82-1.09) 12/01/16 22:59 Assessment/Plan Problem List - Problem (1) Cellulitis Code(s): L03.90 - CELLULITIS, UNSPECIFIED Qualifiers: Site of cellulitis: extremity Site of cellulitis of extremity: lower extremity Laterality: right Qualified Code(s): L03.115 - Cellulitis of right lower limb (2) Scabies Code(s): B86 - SCABIES (3) Arthritist Code(s): M19.90 - UNSPECIFIED OSTEOARTHRITIS, UNSPECIFIED SITE bacteremia gram positive plan continue current abx await for derm to look at the patient
--- NOTE | 2016-12-05 17:40 | CONSULT ---
Consult Consult Specialty:: Dermatology Reason for Consultation:: rash - History Source History Provided By: Patient - Past Medical History Cardio/Vascular: Yes: Other (poor LE circulation) - Alcohol/Substance Use Hx Alcohol Use: No - Smoking History Smoking history: Never smoked Have you smoked in the past 12 months: No Aproximately how many cigarettes per day: 0 If you are a former smoker, when did you quit?: 30 yrs ago Home Medications - Allergies Allergies/Adverse Reactions: Allergies Allergy/AdvReac Type Severity Reaction Status Date / Time No Known Allergies Allergy Verified 12/01/16 22:26 - Home Medications Home Medications: Ambulatory Orders NK [No Known Home Medication] 12/02/16 Physical Exam Vital Signs: Vital Signs Temperature 98.0 F 12/05/16 16:50 Pulse Rate 64 12/05/16 16:50 Respiratory Rate 20 12/05/16 16:50 Blood Pressure 127/76 12/05/16 16:50 O2 Sat by Pulse Oximetry (%) 98 12/04/16 21:00 Constitutional: Yes: No Distress Labs: CBC, BMP 12/04/16 06:15 12/04/16 06:15 Assessment/Plan Examination and Treatment: patient has chronic vascular insufficiency on both LE R>L. He recently fell and sustained a wound on the Rt anterior wolf leading to the development of a wound and cellulitis. He has chronic bilateral stasis dermatitis and has been treated in the wound care clinic previously for a non healing wound.He was admitted to the hospital for cellulitis. He also had an eczematous eruption and treated for scabies. He currently has stasis dermatitis on both lower extremities and an eczematous reaction on both upper extremities as well as R thigh. He does not have any sign of scabies at this time and his contacts at home report no symptoms. Please apply a heavy moisturizer such as vaseline or thick cream to affected areas as well as lidex BID. Continue wound care on RT ant leg with daily dressing changes.Patient also requires Podiatry care.
--- NOTE | 2016-12-05 19:09 | PN ---
Physical Exam: SUBJECTIVE: Patient seen and examined. He was laying in the bed, in no acute distress. Denies pain. OBJECTIVE: Vital Signs Period Temp Pulse Resp BP Sys/Phillips Pulse Ox Last 24 Hr 98.0 F-98.6 F 64-72 16-20 116-132/61-76 98 GENERAL: The patient is awake, alert, and fully oriented, in no acute distress. HEAD: Normal with no signs of trauma. EYES: PERRL, extraocular movements intact, sclera anicteric, conjunctiva clear. No ptosis. LUNGS: Breath sounds equal, clear to auscultation bilaterally, no wheezes, no crackles, no accessory muscle use. HEART: Regular rate and rhythm, S1, S2 without murmur, rub or gallop. ABDOMEN: Soft, nontender, nondistended, normoactive bowel sounds, no guarding, no rebound; excoriated UPPER EXTREMITIES and INNER RIGHT THIGH: covered with red, dry, crusted lesions ; crusting in between fingers, improved RLE: erythema + swelling, tender, warm to touch. NEUROLOGICAL: Cranial nerves II through XII grossly intact. Normal speech, gait not observed. Active Medications Generic Name Dose Route Start Last Admin Trade Name Freq PRN Reason Stop Dose Admin Diphenhydramine HCl 25 mg 12/02/16 03:23 12/03/16 01:51 Benadryl - PO 25 mg Q6H PRN Administration FOR ITCHING Enoxaparin Sodium 40 mg 12/02/16 10:00 12/05/16 10:53 Lovenox - SQ 40 mg DAILY [facility] Administration Fluocinonide 1 applic 12/04/16 22:00 12/05/16 10:54 Lidex 0.05% Cream - TP 1 applic BID [facility] Administration Cefazolin Sodium 50 mls @ 100 mls/hr 12/04/16 14:15 12/05/16 17:53 Ancef 1gm Ivpb (Pre-Docked) IVPB 100 mls/hr Q8H-IV [facility] Administration ASSESSMENT/PLAN: Patient is a 76 year old male with a significant past medical history of arthritis. He was admitted on 12/03/2016 for RLE cellulitis. ID Cellulitis - right lower extremity Assessment/Plan: On Cefazolin started 12/04/2016, previously on Zosyn Wound obtained after a fall Continue wound care on RT ant leg with daily dressing changes. PT consulted, will change wound orders as wound appears wet which may hinder healing wound care as follows: Cleanse wound with NS BID, apply non adherent dressing, wrap in casey change BID Do not apply xerofoam Integumentary: Generalized Rash r/o scabies Assessment/Plan: Rash more prominent on bilateral arms. States Benadryl helps with the itchiness Seen by dermatology: Who feels that patient does not have any sign of scabies at this time, continue Lidex BID\ Will d/c contact precautions F.E.N. Fluids: PO intake adequate Electrolytes: replete as indicated Nutrition: regular diet DVT prophylaxis: lovenox 40mg daily oob, ambulation Dispo: continues to require inpatient care. Full Code. Visit type - Emergency Visit Emergency Visit: Yes ED Registration Date: 12/03/16 Care time: The patient presented to the Emergency Department on the above date and was hospitalized for further evaluation of their emergent condition. - New Patient This patient is new to me today: Yes Date on this admission: 01/13/17 - Critical Care Critical Care patient: No - Discharge Referral Referred to [facility] Med P.C.: No
[2016-12-05] MEDS: diphenhydrAMINE HCL 25 MG CAPSULE (FP) PO PRN (22:17)
[2016-12-06] MEDS: CEFAZOLIN (PRE-DOCKED) 50 ML IVPB SCH ×3 (01:53→18:09)
[2016-12-06 08:04] LABS: BASOPHIL 0.7 % (0-2.0); MCH 31.4 pg (25.7-33.7); MCHC 33.2 g/dl (32.0-35.9); MEAN CELL VOLUME 94.6 fl (80-96); MEAN PLT VOLUME 7.6 fl (7.5-11.1); NEUTROPHILS 62.4 % (42.8-82.8); PLATELET COUNT 214 K/MM3 (134-434); RDW 12.6 % (11.9-15.9); WHITE BLOOD COUNT 6.9 K/mm3 (4.0-10.0)
[2016-12-06 08:29] LABS: ALBUMIN 2.9 g/dl (3.4-5.0); ANION GAP 8 (8-16); CALCIUM 8.4 mg/dL (8.5-10.1); CO2 27 mmol/L (21-32); CREATININE 0.5 mg/dL (0.7-1.3); GLUCOSE,RANDOM 81 mg/dL (74-106); SGOT/AST 28 U/L (15-37); SGPT/ALT 27 U/L (12-78)
[2016-12-06 08:31] LABS: ALK PHOS 97 U/L (45-117); BILIRUBIN,TOTAL 0.4 mg/dL (0.2-1.0); TOT PROT 6.6 g/dl (6.4-8.2)
[2016-12-06] MEDS: ENOXAPARIN NA (PORCINE) 40 MG/0.4 ML DISP.SYRIN SQ SCH (09:43)
[2016-12-06] MEDS: FLUOCINONIDE 0.05% CREAM (60 GM TUBE) TP SCH ×2 (09:44→22:29)
--- NOTE | 2016-12-06 16:10 | PN ---
Physical Exam: SUBJECTIVE: Patient seen and examined. He states he feels well today, offers no complaints. States he had a BM yesterday. OBJECTIVE: Vital Signs Period Temp Pulse Resp BP Sys/Phillips Pulse Ox Last 24 Hr 97.2 F-98.0 F 64-90 16-20 120-138/58-76 97-98 GENERAL: The patient is awake, alert, and fully oriented, in no acute distress. HEAD: Normal with no signs of trauma. EYES: PERRL, extraocular movements intact, sclera anicteric, conjunctiva clear. No ptosis. LUNGS: Breath sounds equal, clear to auscultation bilaterally, no wheezes, no crackles, no accessory muscle use. HEART: Regular rate and rhythm, S1, S2 without murmur, rub or gallop. ABDOMEN: Soft, nontender, nondistended, normoactive bowel sounds, no guarding, no rebound; excoriated UPPER EXTREMITIES and INNER RIGHT THIGH: covered with red, dry, crusted lesions ; crusting in between fingers, improving RLE: erythema + swelling, tender, warm to touch. NEUROLOGICAL: Cranial nerves II through XII grossly intact. Normal speech, gait not observed. Laboratory Results - last 24 hr 12/06/16 12/06/16 06:30 06:30 WBC 6.9 RBC 3.87 L Hgb 12.2 Hct 36.6 MCV 94.6 MCHC 33.2 RDW 12.6 Plt Count 214 MPV 7.6 Neutrophils % 62.4 Lymphocytes % 21.5 Monocytes % 6.4 Eosinophils % 9.0 H Basophils % 0.7 Sodium 140 Potassium 4.2 Chloride 105 Carbon Dioxide 27 Anion Gap 8 BUN 15 Creatinine 0.5 L Creat Clearance w eGFR > 60 Random Glucose 81 Calcium 8.4 L Total Bilirubin 0.4 D AST 28 D ALT 27 Alkaline Phosphatase 97 Total Protein 6.6 Albumin 2.9 L Active Medications Generic Name Dose Route Start Last Admin Trade Name Freq PRN Reason Stop Dose Admin Diphenhydramine HCl 25 mg 12/02/16 03:23 12/05/16 22:17 Benadryl - PO 25 mg Q6H PRN Administration FOR ITCHING Enoxaparin Sodium 40 mg 12/02/16 10:00 12/06/16 09:43 Lovenox - SQ 40 mg DAILY LEIA Administration Fluocinonide 1 applic 12/04/16 22:00 12/06/16 09:44 Lidex 0.05% Cream - TP 1 applic BID LEIA Administration Cefazolin Sodium 50 mls @ 100 mls/hr 12/04/16 14:15 12/06/16 09:43 Ancef 1gm Ivpb (Pre-Docked) IVPB 100 mls/hr Q8H-IV LEIA Administration ASSESSMENT/PLAN: Patient is a 76 year old male with a significant past medical history of arthritis. He was admitted on 12/03/2016 for RLE cellulitis. ID Cellulitis - right lower extremity Assessment/Plan: On Cefazolin started 12/04/2016, previously on Zosyn Wound obtained after a fall Continue wound care on RT ant leg with daily dressing changes. PT consulted, will change wound orders as wound appears wet which may hinder healing wound care as follows: Cleanse wound with NS BID, apply non adherent dressing, wrap in casey change BID Do not apply xerofoam Integumentary: Generalized Rash r/o scabies Assessment/Plan: Rash more prominent on bilateral arms. States Benadryl helps with the itchiness Seen by dermatology: Who feels that patient does not have any sign of scabies at this time, continue Lidex BID\ Will d/c contact precautions F.E.N. Fluids: PO intake adequate Electrolytes: replete as indicated Nutrition: regular diet DVT prophylaxis: lovenox 40mg daily, oob, ambulation GI: colace, miralax Dispo: continues to require inpatient care. Full Code. Visit type - Emergency Visit Emergency Visit: Yes ED Registration Date: 12/03/16 Care time: The patient presented to the Emergency Department on the above date and was hospitalized for further evaluation of their emergent condition. - New Patient This patient is new to me today: No - Critical Care Critical Care patient: No - Discharge Referral Referred to [facility] No
[2016-12-06] MEDS ORDERED: POLYETHYLENE GLYCOL 3350 119 GM BTL PO ONE (16:19)
[2016-12-06] MEDS: DOCUSATE SODIUM 100 MG CAPSULE (FP) PO SCH (22:29)
[2016-12-06] MEDS: diphenhydrAMINE HCL 25 MG CAPSULE (FP) PO PRN (22:40)
[2016-12-07] MEDS: CEFAZOLIN (PRE-DOCKED) 50 ML IVPB SCH ×2 (01:21→09:51)
[2016-12-07] MEDS: DOCUSATE SODIUM 100 MG CAPSULE (FP) PO SCH ×2 (06:08→13:39)
[2016-12-07 08:10] LABS: BASOPHIL 0.7 % (0-2.0); MCH 31.5 pg (25.7-33.7); MCHC 33.3 g/dl (32.0-35.9); MEAN CELL VOLUME 94.5 fl (80-96); MEAN PLT VOLUME 7.7 fl (7.5-11.1); NEUTROPHILS 64.9 % (42.8-82.8); PLATELET COUNT 207 K/MM3 (134-434); WHITE BLOOD COUNT 7.6 K/mm3 (4.0-10.0)
[2016-12-07 08:32] LABS: ALBUMIN 2.9 g/dl (3.4-5.0); ALK PHOS 96 U/L (45-117); ANION GAP 8 (8-16); BILIRUBIN,TOTAL 0.4 mg/dL (0.2-1.0); CALCIUM 8.2 mg/dL (8.5-10.1); CO2 29 mmol/L (21-32); CREATININE 0.6 mg/dL (0.7-1.3); GLUCOSE,RANDOM 73 mg/dL (74-106); SGOT/AST 39 U/L (15-37); SGPT/ALT 32 U/L (12-78); TOT PROT 6.6 g/dl (6.4-8.2)
[2016-12-07] MEDS ORDERED: PT OWN MED DRAWER 7, Y5N ONE (09:49)
[2016-12-07] MEDS: ENOXAPARIN NA (PORCINE) 40 MG/0.4 ML DISP.SYRIN SQ SCH (09:51)
[2016-12-07] MEDS: FLUOCINONIDE 0.05% CREAM (60 GM TUBE) TP SCH (09:51)
--- NOTE | 2016-12-07 10:59 | PN ---
Progress Note, Physician History of Present Illness: rash improving patient doing well note noted from dermatology agree that patient does not have scabies - Current Medication List Current Medications: Active Medications Diphenhydramine HCl (Benadryl -) 25 mg PO Q6H PRN PRN Reason: FOR ITCHING Last Admin: 12/06/16 22:40 Dose: 25 mg Docusate Sodium (Colace -) 100 mg PO TID [facility] Last Admin: 12/07/16 06:08 Dose: 100 mg Enoxaparin Sodium (Lovenox -) 40 mg SQ DAILY [facility] Last Admin: 12/07/16 09:51 Dose: 40 mg Fluocinonide (Lidex 0.05% Cream -) 1 applic TP BID [facility] Last Admin: 12/07/16 09:51 Dose: 1 applic Cefazolin Sodium (Ancef 1gm Ivpb (Pre-Docked)) 50 mls @ 100 mls/hr IVPB Q8H-IV [facility] Last Admin: 12/07/16 09:51 Dose: 100 mls/hr Zinc Acetate/Diphenhydramine (Benadryl 2% Cream) 1 applic TP BID [facility] Last Admin: 12/07/16 09:51 Dose: 1 applic - Objective Vital Signs: Vital Signs Temperature 97.5 F L 12/07/16 06:00 Pulse Rate 60 12/07/16 06:00 Respiratory Rate 20 12/07/16 06:00 Blood Pressure 125/67 12/07/16 06:00 O2 Sat by Pulse Oximetry (%) 97 12/06/16 21:00 Constitutional: Yes: No Distress, Calm Cardiovascular: Yes: Regular Rate and Rhythm Respiratory: Yes: Regular, CTA Bilaterally Gastrointestinal: Yes: Normal Bowel Sounds, Soft Musculoskeletal: Yes: Other Extremities: Yes: Erythema (improving), Other Integumentary: Yes: Rash, Other Wound/Incision: Yes: Other (improving healing well) Neurological: Yes: Alert, Oriented Psychiatric: Yes: Alert Labs: CBC, BMP 12/07/16 06:10 12/07/16 06:10 INR, PTT INR 1.06 (0.82-1.09) 12/01/16 22:59 Assessment/Plan Problem List - Problem (1) Cellulitis Code(s): L03.90 - CELLULITIS, UNSPECIFIED Qualifiers: Site of cellulitis: extremity Site of cellulitis of extremity: lower extremity Laterality: right Qualified Code(s): L03.115 - Cellulitis of right lower limb (2) Scabies Code(s): B86 - SCABIES (3) Arthritist Code(s): M19.90 - UNSPECIFIED OSTEOARTHRITIS, UNSPECIFIED SITE bacteremia gram positive plan continue current abx await for derm to look at the patient patient will need a total 14 days of iv abx continue current mgmt
[2016-12-07] MEDS ORDERED: PICC LINE 8 ML FLUSH PROTOCOL IVPUSH PRN (11:33)
--- NOTE | 2016-12-07 14:43 | DS ---
Physical Exam: SUBJECTIVE: Patient seen and examined. States he feels well, denies pain/or any discomfort. OBJECTIVE: Vital Signs Period Temp Pulse Resp BP Sys/Phillips Pulse Ox Last 24 Hr 97.2 F-97.6 F 60-69 20-20 122-126/54-69 97-97 PHYSICAL EXAM GENERAL: The patient is awake, alert, and fully oriented, in no acute distress. HEAD: Normal with no signs of trauma. EYES: PERRL, extraocular movements intact, sclera anicteric, conjunctiva clear. No ptosis. LUNGS: Breath sounds equal, clear to auscultation bilaterally, no wheezes, no crackles, no accessory muscle use. HEART: Regular rate and rhythm, S1, S2 without murmur, rub or gallop. ABDOMEN: Soft, nontender, nondistended, normoactive bowel sounds, no guarding, no rebound; excoriated UPPER EXTREMITIES and INNER RIGHT THIGH: covered with red, dry, crusted lesions ; crusting in between fingers, improving - not scabies as per derm RLE: erythema + swelling, tender, warm to touch. NEUROLOGICAL: Normal speech, gait not observed. LABS Laboratory Results - last 24 hr 12/07/16 12/07/16 06:10 06:10 WBC 7.6 RBC 3.86 L Hgb 12.2 Hct 36.5 MCV 94.5 MCHC 33.3 RDW 13.0 Plt Count 207 MPV 7.7 Neutrophils % 64.9 Lymphocytes % 21.3 Monocytes % 7.1 Eosinophils % 6.0 H Basophils % 0.7 Sodium 142 Potassium 4.6 Chloride 105 Carbon Dioxide 29 Anion Gap 8 BUN 16 Creatinine 0.6 L Creat Clearance w eGFR > 60 Random Glucose 73 L Calcium 8.2 L Total Bilirubin 0.4 AST 39 H D ALT 32 Alkaline Phosphatase 96 Total Protein 6.6 Albumin 2.9 L HOSPITAL COURSE: Date of Admission:12/03/16 Date of Discharge: 12/07/16 ASSESSMENT/PLAN: Patient is a 76 year old male with a significant past medical history of arthritis. He was admitted on 12/03/2016 for RLE cellulitis. ID Cellulitis - right lower extremity - improving Assessment/Plan: On Cefazolin started 12/04/2016, previously on Zosyn - as per ID will need 14 days total of IV antibiotics through 12/18/2016 PICC line needed and ordered - spoke to IR Continue wound care on RT with BID dressing changes. Wound care performed by me today: cleansed wound with NS BID, apply non adherent dressing, wrap in casey change BID Do not apply xerofoam Integumentary: Generalized Rash r/o scabies Assessment/Plan: Rash more prominent on bilateral arms. States Benadryl helps with the itchiness Seen by dermatology: Who feels that patient does not have any sign of scabies at this time, continue Lidex BID Will d/c contact precautions F.E.N. Fluids: PO intake adequate Electrolytes: replete as indicated Nutrition: regular diet Disposition: Needs PICC prior to discharge for 14 days total of IV antibiotics through 12/18/2016. Will also need BID wound care as instructions above. Full Code. Minutes to complete discharge: 60 Discharge Summary Reason For Visit: CELLUITIS Current Active Problems Arthritis (Acute) Cellulitis (Acute) DVT prophylaxis (Acute) Scabies (Acute) Condition: Guarded - Instructions Diet, Activity, Other Instructions: Patient will need a total of 14 days of Cefazolin antibiotics. Antibiotics started on 12/04/2016. Please repeat CBC and CMP weekly for two weeks. His repeat blood cultures are pending. WOUND CARE INSTRUCTIONS: Clearnse right wolf wound with normal saline or wound cleanser apply non adherent dressing/may apply small amount of wound gel cover with casey or light wrap change twice per day. Referrals: Joel Haq MD [Primary Care Provider] - Disposition: ASSISTED FACILITY - Home Medications Comprehensive Discharge Medication List: Ambulatory Orders Cefazolin (Pre-Docked) [Ancef 1Gm Ivpb (Pre-Docked)] 50 ml IVPB Q8H-IV bag Diphenhydramine HCl [Benadryl Capsule -] 25 mg PO Q6H PRN #0 12/07/16 Diphenhydramine HCl/Zinc Acet [Benadryl 2% Cream] 1 applic TP BID tube Docusate Sodium [Colace -] 100 mg PO TID 12/07/16 Enoxaparin [Lovenox -] 40 mg SQ DAILY 12/07/16 Fluocinonide 0.05% Cream [Lidex 0.05% Cream -] 1 applic TP BID tube 12/07/16 Picc Line Flush [Picc Line Flush -] 8 ml IVPUSH PRN PRN #0 ml 12/07/16 This patient is new to me today: No Emergency Visit: Yes ED Registration Date: 12/03/16 Care time: The patient presented to the Emergency Department on the above date and was hospitalized for further evaluation of their emergent condition. Critical Care patient: No - Discharge Referral Referred to [facility] No
[2016-12-07 19:19] VITALS: BP 125/67; PULSE 73; TEMP 99
== END 2016-12-07 18:34 | DRG 603 ==
LOC: JER 22:17 → JERBED 12-02 01:44 → UNDOADMOB 12-02 01:46 → J8W 12-02 19:03 → OBSVTOIN 12-03 14:39
PROVIDERS: ADMIT Internal Medicine; ATTEND Nurse Practitioner Family
PROC: 02HV33Z Insertion of Infusion Device into Superior Vena Cava, Percutaneous Approach (ICD-10-PCS; principal; 2016-12-07)
PROC: B518YZA Fluoroscopy of Superior Vena Cava using Other Contrast, Guidance (ICD-10-PCS; 2016-12-07)
DX: L03.115 Cellulitis of right lower limb (principal); R78.81 Bacteremia; R64 Cachexia; Z68.1 Body mass index [BMI] 19.9 or less, adult; B86 Scabies; M19.90 Unspecified osteoarthritis, unspecified site
CPT/HCPCS: 36415; 36569; 71010-TC; 77001-TC; 80048; 80053; 81003; 82550; 82553; 83605; 83735; 84484; 85025; 85610; 85730; 86140; 86850; 86900; 86901; 87040; 87086; 87186; 93005; 93010; 93970-TC; 97116-GP; 97162-PG; 99284-25; C1751; G0378

== ENCOUNTER 2023-08-26 01:49 | Inpatient (IN) | payer OTHER ==
[2023-08-26 02:25] VITALS: BMI 19.0
[2023-08-26] MEDS ORDERED: DIPHTH,PERTUSS(ACELL),TET 0.5 ML DISP.SYRIN IM ONE ×2 (02:26→03:04)
[2023-08-26 02:55] LABS: HEMATOCRIT 40.8 % (35.4-49); HEMOGLOBIN 13.6 GM/dL (11.7-16.9); MCH 32.1 pg (25.7-33.7); MCHC 33.2 g/dl (32.0-35.9); MEAN CELL VOLUME 96.6 fl (80-96); MEAN PLT VOLUME 8.3 fl (7.5-11.1); PLATELET COUNT 194 10^3/uL (134-434); RBC 4.23 M/mm3 (4.00-5.60); RDW 13.4 % (11.9-15.9); WHITE BLOOD COUNT 12.9 K/mm3 (4.0-10.0)
[2023-08-26 03:02] LABS: INR 1.05 (0.83-1.09); PROTHROMBIN TIME (PATIENT) 12.2 SEC (9.7-13.0)
[2023-08-26 03:05] LABS: ACTIVATED PTT 30.1 SECONDS (25.2-36.5)
[2023-08-26] MEDS ORDERED: ACETAMINOPHEN 325 MG TABLET (FP) ONE (03:18)
[2023-08-26] MEDS ORDERED: ACETAMINOPHEN 500 MG TABLET (FP) PO ONE (03:19)
[2023-08-26 03:37] LABS: POTASSIUM 4.1 mmol/L (3.5-5.1)
[2023-08-26 03:40] LABS: ALBUMIN 3.9 g/dl (3.4-5.0); BLOOD UREA NITROGEN 25.7 mg/dL (7-18)
[2023-08-26 03:42] LABS: CREATININE 0.9 mg/dL (0.55-1.3)
[2023-08-26 03:44] LABS: BILIRUBIN,TOTAL 0.7 mg/dL (0.2-1); TOT PROT 7.7 g/dl (6.4-8.2)
[2023-08-26 04:23] LABS: PH,URINE 6.5 (5.0-8.0); URINE APPEARANCE Error; URINE BILIRUBIN NEGATIVE (NEGATIVE); URINE COLOR YELLOW; URINE GLUCOSE (UA) NEGATIVE (NEGATIVE); URINE KETONE NEGATIVE (NEGATIVE); URINE LEUK ESTERASE NEGATIVE (NEGATIVE); URINE NITRITE NEGATIVE (NEGATIVE); URINE PROTEIN NEGATIVE (NEGATIVE)
[2023-08-26] MEDS ORDERED: SODIUM CHLORIDE 0.9% 500 ML INFUS.BAG IV ONE (05:00)
[2023-08-26 06:01] LABS: ANISOCYTOSIS 1+; MACROCYTOSIS 0
[2023-08-26] MEDS ORDERED: ACETAMINOPHEN 500 MG TABLET (FP) PO PRN (09:25)
[2023-08-26] MEDS: metoPROLOL SUCCINATE 25 MG TAB.SR.24H (FP) PO SCH (10:26)
[2023-08-26] MEDS: ASPIRIN COATED 81 MG TABLET.EC PO SCH (10:26)
[2023-08-26] MEDS: HEPARIN NA (PORCINE) 5,000 UNITS/ML 1ML VIAL SQ SCH ×2 (10:26→21:53)
[2023-08-27 07:16] LABS: BASO % 0.5 % (0-2.0); EOS % 2.5 % (0-4.5); HEMATOCRIT 39.6 % (35.4-49); HEMOGLOBIN 13.2 GM/dL (11.7-16.9); LYMPH % 18.2 % (8-40); MCH 32.7 pg (25.7-33.7); MCHC 33.3 g/dl (32.0-35.9); MEAN CELL VOLUME 98.1 fl (80-96); MEAN PLT VOLUME 8.5 fl (7.5-11.1); MONO % 7.7 % (3.8-10.2); NEUT % 71.1 % (42.8-82.8); PLATELET COUNT 162 10^3/uL (134-434); RBC 4.04 M/mm3 (4.00-5.60); RDW 13.4 % (11.9-15.9); WHITE BLOOD COUNT 7.2 K/mm3 (4.0-10.0)
[2023-08-27 07:37] LABS: POTASSIUM 4.3 mmol/L (3.5-5.1)
[2023-08-27 07:43] LABS: CALCIUM 8.5 mg/dL (8.5-10.1)
[2023-08-27 07:44] LABS: BLOOD UREA NITROGEN 16.3 mg/dL (7-18)
[2023-08-27 07:47] LABS: CREATININE 0.7 mg/dL (0.55-1.3)
[2023-08-27] MEDS: TAMSULOSIN HCL 0.4 MG CAP PO SCH (09:29)
[2023-08-27] MEDS: ASPIRIN COATED 81 MG TABLET.EC PO SCH (09:31)
[2023-08-27] MEDS: metoPROLOL SUCCINATE 25 MG TAB.SR.24H (FP) PO SCH ×2 (09:31→21:50)
[2023-08-27] MEDS: HEPARIN NA (PORCINE) 5,000 UNITS/ML 1ML VIAL SQ SCH ×2 (09:31→21:53)
[2023-08-27] MEDS ORDERED: METOPROLOL TARTRATE 5 MG/5 ML VIAL IVPUSH ONE (17:56)
[2023-08-27] MEDS ORDERED: PIPERACILLIN/TAZOB 3.375 GM 3.375 GM in DEXTROSE 5%-WATER - 50 ML IVPB SCH ×3 (18:00)
[2023-08-28] MEDS: AMPICILLIN NA/SULBACTAM NA 1.5 GM in SODIUM CHLORIDE 100 ML IVPB SCH ×3 (01:35→18:49)
[2023-08-28 08:03] LABS: HEMATOCRIT 39.3 % (35.4-49); HEMOGLOBIN 13.1 GM/dL (11.7-16.9); MCH 32.7 pg (25.7-33.7); MCHC 33.3 g/dl (32.0-35.9); MEAN PLT VOLUME 8.3 fl (7.5-11.1); PLATELET COUNT 165 10^3/uL (134-434); RBC 4.01 M/mm3 (4.00-5.60); RDW 13.2 % (11.9-15.9); WHITE BLOOD COUNT 7.6 K/mm3 (4.0-10.0)
[2023-08-28 08:23] LABS: POTASSIUM 4.4 mmol/L (3.5-5.1)
[2023-08-28 08:26] LABS: BLOOD UREA NITROGEN 17.7 mg/dL (7-18)
[2023-08-28 08:29] LABS: CREATININE 0.7 mg/dL (0.55-1.3)
[2023-08-28] MEDS: HEPARIN NA (PORCINE) 5,000 UNITS/ML 1ML VIAL SQ SCH ×2 (09:11→21:23)
[2023-08-28] MEDS: ASPIRIN COATED 81 MG TABLET.EC PO SCH (09:12)
[2023-08-28] MEDS: TAMSULOSIN HCL 0.4 MG CAP PO SCH (09:12)
[2023-08-28] MEDS: metoPROLOL SUCCINATE 25 MG TAB.SR.24H (FP) PO SCH ×2 (09:12→21:23)
[2023-08-29] MEDS: AMPICILLIN NA/SULBACTAM NA 1.5 GM in SODIUM CHLORIDE 100 ML IVPB SCH ×3 (01:09→17:23)
[2023-08-29 06:47] LABS: HEMATOCRIT 37.9 % (35.4-49); HEMOGLOBIN 12.8 GM/dL (11.7-16.9); MCHC 33.7 g/dl (32.0-35.9); MEAN CELL VOLUME 97.9 fl (80-96); MEAN PLT VOLUME 8.2 fl (7.5-11.1); PLATELET COUNT 168 10^3/uL (134-434); RBC 3.87 M/mm3 (4.00-5.60); RDW 13.2 % (11.9-15.9); WHITE BLOOD COUNT 7.1 K/mm3 (4.0-10.0)
[2023-08-29 07:07] LABS: POTASSIUM 4.4 mmol/L (3.5-5.1)
[2023-08-29 07:08] LABS: CALCIUM 8.2 mg/dL (8.5-10.1)
[2023-08-29 07:09] LABS: BLOOD UREA NITROGEN 21.8 mg/dL (7-18)
[2023-08-29 07:12] LABS: CREATININE 0.7 mg/dL (0.55-1.3)
[2023-08-29] MEDS: TAMSULOSIN HCL 0.4 MG CAP PO SCH (08:18)
[2023-08-29] MEDS: metoPROLOL SUCCINATE 25 MG TAB.SR.24H (FP) PO SCH ×2 (09:13→21:12)
[2023-08-29] MEDS: HEPARIN NA (PORCINE) 5,000 UNITS/ML 1ML VIAL SQ SCH ×2 (09:13→21:12)
[2023-08-29] MEDS: ASPIRIN COATED 81 MG TABLET.EC PO SCH (09:13)
[2023-08-30] MEDS: AMPICILLIN NA/SULBACTAM NA 1.5 GM in SODIUM CHLORIDE 100 ML IVPB SCH ×3 (01:09→17:29)
[2023-08-30 06:42] LABS: POTASSIUM 4.6 mmol/L (3.5-5.1)
[2023-08-30 06:47] LABS: CREATININE 0.8 mg/dL (0.55-1.3); PHOSPHOROUS 3.3 mg/dL (2.5-4.9)
[2023-08-30 06:49] LABS: CALCIUM 8.3 mg/dL (8.5-10.1)
[2023-08-30 06:51] LABS: HEMATOCRIT 38.2 % (35.4-49); HEMOGLOBIN 12.6 GM/dL (11.7-16.9); MCH 32.5 pg (25.7-33.7); MEAN CELL VOLUME 98.3 fl (80-96); MEAN PLT VOLUME 8.4 fl (7.5-11.1); PLATELET COUNT 179 10^3/uL (134-434); RBC 3.88 M/mm3 (4.00-5.60); RDW 13.2 % (11.9-15.9); WHITE BLOOD COUNT 8.3 K/mm3 (4.0-10.0)
[2023-08-30] MEDS: TAMSULOSIN HCL 0.4 MG CAP PO SCH (08:48)
[2023-08-30] MEDS: ASPIRIN COATED 81 MG TABLET.EC PO SCH (09:27)
[2023-08-30] MEDS: HEPARIN NA (PORCINE) 5,000 UNITS/ML 1ML VIAL SQ SCH ×2 (09:28→21:58)
[2023-08-30] MEDS: metoPROLOL SUCCINATE 25 MG TAB.SR.24H (FP) PO SCH ×2 (09:28→21:58)
[2023-08-30] MEDS ORDERED: METOPROLOL TARTRATE 5 MG/5 ML VIAL ONE (19:47)
[2023-08-30 22:08] VITALS: TEMP 98.8
[2023-08-31] MEDS: AMPICILLIN NA/SULBACTAM NA 1.5 GM in SODIUM CHLORIDE 100 ML IVPB SCH ×2 (01:01→10:54)
[2023-08-31 05:34] VITALS: BP 120/74; PULSE 93; RESP 18
[2023-08-31] MEDS: ASPIRIN COATED 81 MG TABLET.EC PO SCH (10:05)
[2023-08-31] MEDS: metoPROLOL SUCCINATE 25 MG TAB.SR.24H (FP) PO SCH (10:05)
[2023-08-31] MEDS: HEPARIN NA (PORCINE) 5,000 UNITS/ML 1ML VIAL SQ SCH (10:05)
[2023-08-31] MEDS: TAMSULOSIN HCL 0.4 MG CAP PO SCH (10:06)
== END 2023-08-31 13:08 | DRG 309 ==
LOC: JER 01:49 → JERBED 09:20 → OBSVTOIN 09:22 → J4W 15:34
PROVIDERS: ADMIT Internal Medicine; ATTEND Internal Medicine
DX: I48.19 Other persistent atrial fibrillation (principal); E44.0 Moderate protein-calorie malnutrition; I24.89 Other forms of acute ischemic heart disease; R64 Cachexia; L97.818 Non-pressure chronic ulcer of other part of right lower leg with other specified severity; Z68.1 Body mass index [BMI] 19.9 or less, adult; L03.115 Cellulitis of right lower limb; R33.9 Retention of urine, unspecified; S81.811A Laceration without foreign body, right lower leg, initial encounter; S93.124A Dislocation of metatarsophalangeal joint of right lesser toe(s), initial encounter; N40.0 Benign prostatic hyperplasia without lower urinary tract symptoms; N21.0 Calculus in bladder; R29.6 Repeated falls; I87.8 Other specified disorders of veins; Y92.098 Other place in other non-institutional residence as the place of occurrence of the external cause; W07.XXXA Fall from chair, initial encounter; Y99.9 Unspecified external cause status
CPT/HCPCS: 36415; 70450-TC; 71045-TC-FY; 71260-TC; 72125-TC; 73590-TC-RT-FY; 73610-TC-RT-FY; 73630-TC-RT-FY; 74018-TC-FY; 74177-TC; 76775-TC; 80048; 80053; 81003; 82550; 82553; 83735; 84100; 84484; 85025; 85027; 85610; 85730; 87086; 87635; 90715; 93005; 93010; 93306-TC; 97162-GP; 99285-25; G0378; J1644; Q9967

== ENCOUNTER 2023-11-24 20:47 | Inpatient (IN) | payer OTHER ==
[2023-11-24 22:02] LABS: VENOUS BASE EXCESS -2.4 mmol/L (-2-2); VENOUS O2 SATURATION 84.8 % (70-80); VENOUS PCO2 30.7 mmHg (38-52); VENOUS PH 7.441 (7.310-7.410)
[2023-11-24 22:07] LABS: BASO % 0.4 % (0-2.0); HEMATOCRIT 46.6 % (35.4-49); HEMOGLOBIN 15.4 GM/dL (11.7-16.9); MCH 31.5 pg (25.7-33.7); MEAN CELL VOLUME 95.4 fl (80-96); MEAN PLT VOLUME 8.8 fl (7.5-11.1); MONO % 6.2 % (3.8-10.2); NEUT % 89.4 % (42.8-82.8); PLATELET COUNT 212 10^3/uL (134-434); RBC 4.88 M/mm3 (4.00-5.60); RDW 15.1 % (11.9-15.9); WHITE BLOOD COUNT 14.2 K/mm3 (4.0-10.0)
[2023-11-24 22:11] LABS: INR 1.01 (0.83-1.09); PROTHROMBIN TIME (PATIENT) 11.7 SEC (9.7-13.0)
[2023-11-24 22:14] LABS: ACTIVATED PTT 26.2 SECONDS (25.2-36.5)
[2023-11-24] MEDS: SODIUM CHLORIDE 0.9% 500 ML INFUS.BAG IV ONE (22:24)
[2023-11-24] MEDS ORDERED: ONDANSETRON 4 MG/2 ML VIAL ONE (22:25)
[2023-11-24] MEDS ORDERED: PANTOPRAZOLE SODIUM 40 MG VIAL ONE (22:25)
[2023-11-24] MEDS ORDERED: ACETAMINOPHEN INJECTION 100 ML IVPB ONE (22:28)
[2023-11-24] MEDS ORDERED: dilTIAZem HCL 125 MG/25 ML - 25 ML VIAL ONE ×2 (22:34→23:06)
[2023-11-24 22:35] LABS: LACTIC ACID 2.6 mmol/L (0.4-2.0)
[2023-11-24] MEDS: dilTIAZem HCL 50 MG/10 ML - 10 ML VIAL IVPUSH ONE ×2 (22:56→23:21)
[2023-11-24] MEDS: ACETAMINOPHEN 1000 MG/100 ML BAG IVPB ONE (22:56)
[2023-11-24] MEDS: PANTOPRAZOLE SODIUM 40 MG VIAL IVPUSH ONE (22:56)
[2023-11-24] MEDS: ONDANSETRON 4 MG/2 ML VIAL IVPUSH ONE (22:56)
[2023-11-24 23:10] LABS: POTASSIUM 4.6 mmol/L (3.5-5.1)
[2023-11-24 23:14] LABS: BLOOD UREA NITROGEN 56.2 mg/dL (7-18); CALCIUM 9.3 mg/dL (8.5-10.1)
[2023-11-24] MEDS ORDERED: PIPERACILLIN/TAZOB 3.375 GM 3.375 GM/50 ML BAG IVPB ONE (23:16)
[2023-11-24 23:17] LABS: CREATININE 0.9 mg/dL (0.55-1.3)
[2023-11-24 23:19] LABS: TOT PROT 7.3 g/dl (6.4-8.2)
[2023-11-24 23:28] LABS: BILIRUBIN,TOTAL 0.8 mg/dL (0.2-1)
[2023-11-24] MEDS: PIPERACILLIN/TAZOB 3.375 GM 3.375 GM in DEXTROSE 5%-WATER - 50 ML IVPB ONE (23:44)
[2023-11-25] MEDS ORDERED: ACETAMINOPHEN 1000 MG/100 ML BAG IVPB PRN (02:28)
[2023-11-25] MEDS: LACTATED RINGERS SOLUTION 1,000 ML/1,000 ML INFUS.BAG IV SCH (04:28)
[2023-11-25] MEDS: dilTIAZem HCL 50 MG/10 ML - 10 ML VIAL IVPUSH ONE (04:29)
[2023-11-25 06:01] VITALS: BMI 18.1
[2023-11-25 07:07] LABS: BASO % 0.1 % (0-2.0); HEMATOCRIT 40.7 % (35.4-49); HEMOGLOBIN 13.5 GM/dL (11.7-16.9); LYMPH % 5.9 % (8-40); MCH 31.4 pg (25.7-33.7); MCHC 33.2 g/dl (32.0-35.9); MEAN CELL VOLUME 94.6 fl (80-96); MEAN PLT VOLUME 8.7 fl (7.5-11.1); MONO % 6.9 % (3.8-10.2); NEUT % 87.1 % (42.8-82.8); PLATELET COUNT 174 10^3/uL (134-434); RDW 15.2 % (11.9-15.9); WHITE BLOOD COUNT 12.6 K/mm3 (4.0-10.0)
[2023-11-25] MEDS ORDERED: PNEUMOC 20-VAL CONJ-DIP CRM/PF 0.5 ML SYRINGE IM ONE (09:00)
[2023-11-25] MEDS: TAMSULOSIN HCL 0.4 MG CAP PO SCH (09:17)
[2023-11-25] MEDS: GABAPENTIN 100 MG CAPSULE PO SCH (09:17)
[2023-11-25] MEDS: PANTOPRAZOLE SODIUM 40 MG VIAL IVPUSH SCH (09:17)
[2023-11-25] MEDS: PIPERACILLIN/TAZOB 3.375 GM 3.375 GM in DEXTROSE 5%-WATER - 50 ML IVPB SCH ×3 (09:17→19:24)
[2023-11-25] MEDS ORDERED: ENOXAPARIN NA (PORCINE) 40 MG/0.4 ML DISP.SYRIN SQ SCH (10:00)
[2023-11-25] MEDS ORDERED: metoPROLOL SUCCINATE 25 MG TAB.SR.24H (FP) PO SCH (10:00)
[2023-11-25] MEDS ORDERED: PANTOPRAZOLE SODIUM 40 MG VIAL IVPUSH SCH (10:00)
[2023-11-25 10:43] LABS: POTASSIUM 4.4 mmol/L (3.5-5.1)
[2023-11-25 10:50] LABS: CALCIUM 8.6 mg/dL (8.5-10.1)
[2023-11-25 10:51] LABS: ALBUMIN 2.6 g/dl (3.4-5.0); BLOOD UREA NITROGEN 46.8 mg/dL (7-18); MAGNESIUM 2.8 mg/dL (1.8-2.4)
[2023-11-25 10:54] LABS: CREATININE 0.7 mg/dL (0.55-1.3); PHOSPHOROUS 2.7 mg/dL (2.5-4.9)
[2023-11-25 10:55] LABS: TOT PROT 6.4 g/dl (6.4-8.2)
[2023-11-25 10:56] LABS: BILIRUBIN,TOTAL 1.2 mg/dL (0.2-1)
[2023-11-25] MEDS: metoPROLOL SUCCINATE 25 MG TAB.SR.24H (FP) PO SCH (11:57)
[2023-11-26 08:10] LABS: CALCIUM 7.9 mg/dL (8.5-10.1)
[2023-11-26 08:11] LABS: ALBUMIN 2.4 g/dl (3.4-5.0); BLOOD UREA NITROGEN 29.5 mg/dL (7-18)
[2023-11-26 08:14] LABS: CREATININE 0.5 mg/dL (0.55-1.3)
[2023-11-26 08:15] LABS: BILIRUBIN,TOTAL 1.2 mg/dL (0.2-1)
[2023-11-26 08:16] LABS: TOT PROT 5.9 g/dl (6.4-8.2)
[2023-11-26 08:32] LABS: EOS % 0.8 % (0-4.5); HEMATOCRIT 37.1 % (35.4-49); HEMOGLOBIN 12.3 GM/dL (11.7-16.9); LYMPH % 15.1 % (8-40); MCH 31.7 pg (25.7-33.7); MCHC 33.2 g/dl (32.0-35.9); MEAN CELL VOLUME 95.3 fl (80-96); MEAN PLT VOLUME 8.6 fl (7.5-11.1); MONO % 8.4 % (3.8-10.2); NEUT % 75.7 % (42.8-82.8); PLATELET COUNT 162 10^3/uL (134-434); RDW 15.1 % (11.9-15.9); WHITE BLOOD COUNT 9.1 K/mm3 (4.0-10.0)
[2023-11-26] MEDS: POLYETHYLENE GLYCOL (HEALTHYLAX) 3350 17 GM PACKET PO SCH (11:18)
[2023-11-26] MEDS: AMINO ACIDS/PROTEIN HYDROLYS 30 ML LIQUID.PKT PO SCH (17:03)
[2023-11-27 07:41] LABS: BASO % 0.1 % (0-2.0); EOS % 4.1 % (0-4.5); HEMATOCRIT 36.3 % (35.4-49); LYMPH % 9.9 % (8-40); MCH 31.5 pg (25.7-33.7); MCHC 33.1 g/dl (32.0-35.9); MEAN PLT VOLUME 8.3 fl (7.5-11.1); MONO % 8.7 % (3.8-10.2); NEUT % 77.2 % (42.8-82.8); PLATELET COUNT 164 10^3/uL (134-434); RBC 3.82 M/mm3 (4.00-5.60); RDW 14.7 % (11.9-15.9); WHITE BLOOD COUNT 10.9 K/mm3 (4.0-10.0)
[2023-11-27 07:57] LABS: POTASSIUM 3.9 mmol/L (3.5-5.1)
[2023-11-27 08:01] LABS: ALBUMIN 2.2 g/dl (3.4-5.0); BLOOD UREA NITROGEN 18.5 mg/dL (7-18)
[2023-11-27 08:04] LABS: CREATININE 0.5 mg/dL (0.55-1.3)
[2023-11-27 08:06] LABS: TOT PROT 5.5 g/dl (6.4-8.2)
[2023-11-27] MEDS: MULTIVITAMINS THER W-MINERALS COMBO TABLET (FP) PO SCH (09:04)
[2023-11-27] MEDS: CEFTRIAXONE 1 GM in DEXTROSE 5%-WATER - 50 ML IVPB SCH (13:09)
[2023-11-27] MEDS ORDERED: SIMETHICONE 80 MG TAB.CHEW (FP) PO PRN (13:58)
[2023-11-27] MEDS: SIMETHICONE 40 MG/0.6 ML BOTTLE PO PRN (18:09)
[2023-11-28 07:19] LABS: BASO % 0.3 % (0-2.0); EOS % 4.8 % (0-4.5); HEMATOCRIT 39.7 % (35.4-49); HEMOGLOBIN 13.1 GM/dL (11.7-16.9); LYMPH % 12.8 % (8-40); MCH 31.3 pg (25.7-33.7); MCHC 33.1 g/dl (32.0-35.9); MEAN CELL VOLUME 94.5 fl (80-96); MEAN PLT VOLUME 7.9 fl (7.5-11.1); MONO % 8.5 % (3.8-10.2); NEUT % 73.6 % (42.8-82.8); PLATELET COUNT 191 10^3/uL (134-434); RDW 14.6 % (11.9-15.9); WHITE BLOOD COUNT 8.6 K/mm3 (4.0-10.0)
[2023-11-28 07:42] LABS: POTASSIUM 4.6 mmol/L (3.5-5.1)
[2023-11-28 07:46] LABS: ALBUMIN 2.4 g/dl (3.4-5.0); BLOOD UREA NITROGEN 10.3 mg/dL (7-18); CALCIUM 8.4 mg/dL (8.5-10.1)
[2023-11-28 07:49] LABS: CREATININE 0.5 mg/dL (0.55-1.3)
[2023-11-28 07:51] LABS: BILIRUBIN,TOTAL 0.7 mg/dL (0.2-1); TOT PROT 6.2 g/dl (6.4-8.2)
[2023-11-29 07:06] LABS: HEMATOCRIT 38.7 % (35.4-49); HEMOGLOBIN 12.9 GM/dL (11.7-16.9); MCH 31.4 pg (25.7-33.7); MCHC 33.3 g/dl (32.0-35.9); MEAN CELL VOLUME 94.3 fl (80-96); MEAN PLT VOLUME 7.9 fl (7.5-11.1); PLATELET COUNT 210 10^3/uL (134-434); RDW 14.4 % (11.9-15.9); WHITE BLOOD COUNT 9.8 K/mm3 (4.0-10.0)
[2023-11-29 07:42] LABS: POTASSIUM 4.4 mmol/L (3.5-5.1)
[2023-11-29 07:45] LABS: ALBUMIN 2.4 g/dl (3.4-5.0); CALCIUM 7.9 mg/dL (8.5-10.1)
[2023-11-29 07:46] LABS: BLOOD UREA NITROGEN 8.8 mg/dL (7-18); MAGNESIUM 2.2 mg/dL (1.8-2.4)
[2023-11-29 07:48] LABS: CREATININE 0.5 mg/dL (0.55-1.3)
[2023-11-29 07:49] LABS: PHOSPHOROUS 2.9 mg/dL (2.5-4.9)
[2023-11-29 07:50] LABS: BILIRUBIN,TOTAL 0.6 mg/dL (0.2-1)
[2023-11-29] MEDS ORDERED: MAG HYDROX/AL HYDROX/SIMETH 30 ML UNIT-DOSE CUP PO PRN (17:55)
[2023-11-30] MEDS: DOCUSATE NA 100 MG/10 ML UNIT-DOSE CUPS PO PRN (10:13)
[2023-12-01 07:08] LABS: HEMATOCRIT 39.8 % (35.4-49); HEMOGLOBIN 13.3 GM/dL (11.7-16.9); MCH 31.6 pg (25.7-33.7); MCHC 33.5 g/dl (32.0-35.9); MEAN CELL VOLUME 94.5 fl (80-96); MEAN PLT VOLUME 7.3 fl (7.5-11.1); PLATELET COUNT 255 10^3/uL (134-434); RBC 4.21 M/mm3 (4.00-5.60); RDW 14.6 % (11.9-15.9); WHITE BLOOD COUNT 8.4 K/mm3 (4.0-10.0)
[2023-12-01 07:33] LABS: POTASSIUM 4.8 mmol/L (3.5-5.1)
[2023-12-01 07:35] LABS: BLOOD UREA NITROGEN 11.9 mg/dL (7-18); CALCIUM 8.5 mg/dL (8.5-10.1); MAGNESIUM 2.1 mg/dL (1.8-2.4)
[2023-12-01 07:38] LABS: ALBUMIN 2.5 g/dl (3.4-5.0); CREATININE 0.6 mg/dL (0.55-1.3)
[2023-12-01 07:39] LABS: BILIRUBIN,TOTAL 0.5 mg/dL (0.2-1)
[2023-12-01 07:40] LABS: TOT PROT 6.2 g/dl (6.4-8.2)
[2023-12-01 13:27] VITALS: TEMP 97.8
[2023-12-01 16:26] VITALS: BP 104/66; PULSE 102; RESP 21
== END 2023-12-01 19:00 | DRG 871 ==
LOC: JER 20:47 → JERBED 23:14 → J2W 11-25 05:01
PROVIDERS: ADMIT Internal Medicine
DX: A41.9 Sepsis, unspecified organism (principal); G92.9 Unspecified toxic encephalopathy; N39.0 Urinary tract infection, site not specified; T83.511A Infection and inflammatory reaction due to indwelling urethral catheter, initial encounter; K92.0 Hematemesis; Z68.1 Body mass index [BMI] 19.9 or less, adult; R64 Cachexia; I10 Essential (primary) hypertension; I48.91 Unspecified atrial fibrillation; N40.1 Benign prostatic hyperplasia with lower urinary tract symptoms; E86.0 Dehydration; I25.10 Atherosclerotic heart disease of native coronary artery without angina pectoris; B96.4 Proteus (mirabilis) (morganii) as the cause of diseases classified elsewhere; B96.20 Unspecified Escherichia coli [E. coli] as the cause of diseases classified elsewhere; R33.9 Retention of urine, unspecified; Y83.9 Surgical procedure, unspecified as the cause of abnormal reaction of the patient, or of later complication, without mention of misadventure at the time of the procedure; K59.00 Constipation, unspecified; K21.9 Gastro-esophageal reflux disease without esophagitis
CPT/HCPCS: 0241U-QW; 36415; 70450-TC; 71045-TC-FY; 71250-TC; 74177-TC; 80053; 81003; 82272; 82550; 82803; 83605; 83735; 84100; 84443; 84484; 85025; 85027; 85610; 85730; 86850; 86900; 86901; 87040; 87086; 87186; 93005; 93010; 94761; 97116-GP; 97161-GP; 99285-25; J0131; Q9967

== ENCOUNTER 2024-07-15 17:25 | Emergency (ER) | payer OTHER ==
[2024-07-15 19:27] VITALS: RESP 16
[2024-07-16 01:59] VITALS: BP 129/89; PULSE 72; TEMP 98.6
== END 2024-07-16 02:39 ==
LOC: JER 17:25
DX: Z04.3 Encounter for examination and observation following other accident (principal); Z89.612 Acquired absence of left leg above knee; F03.90 Unspecified dementia, unspecified severity, without behavioral disturbance, psychotic disturbance, mood disturbance, and anxiety; W06.XXXA Fall from bed, initial encounter
CPT/HCPCS: 70450-TC; 71045-TC-FY; 72125-TC; 72170-TC-FY; 99284-25